=== PATIENT | female | born 1950 | race Hispanic/Latino ===

== ENCOUNTER 2021-07-26 19:12 | Emergency (ER) | payer MEDICARE ==
--- NOTE | 2021-07-26 20:52 | Emergency Department Report ---
ED Psych HPI - General Chief Complaint: Medical Clearance Stated Complaint: MEDICAL CLEARANCE Time Seen by Provider: 07/26/21 20:47 - History of Present Illness Initial Comments: Patient is 71 years old female with history of hypertension and osteoarthritis. Unknown past psychiatric history. Patient brought to the emergency room by EMS from a [facility] to be admitted to our geriatric psychiatric units. EMS stated that patient is having suicidal ideation. When I asked the patient states she stated that she was suicidal in November. Patient is alert but she is not answering question appropriately. Patient is very delusional. When asked about this auditory and visual hallucination patient denied. Patient denied any fever or chills. No chest pain or shortness of breath. No focal weakness numbness or tingling sensation. MD Complaint: suicidal ideation, altered mental status -: unknown Associated Psychiatric Symptoms: racing thoughts - Related Data Home Medications Medication Instructions Recorded Confirmed Last Taken Diclofenac 1% [Diclofenac 1% 100 gm TP Q6H 07/27/21 07/28/21 Unknown topical gel] Rivaroxaban [Xarelto] 20 mg PO DAILY 07/27/21 07/28/21 Unknown Valproic Acid [Depakene] 250 mg PO BID 07/27/21 07/28/21 Unknown amLODIPine [Norvasc] 10 mg PO DAILY 07/27/21 07/28/21 Unknown Previous Rx's Medication Instructions Recorded Last Taken Type cephALEXin [Keflex] 500 mg PO Q8HR #20 cap 07/27/21 Unknown Rx Allergies Allergy/AdvReac Type Severity Reaction Status Date / Time No Known Allergies Allergy Verified 07/27/21 04:01 ED Review of Systems ROS: Stated complaint: MEDICAL CLEARANCE Other details as noted in HPI Comment: All other systems reviewed and negative Constitutional: denies: chills, fever Respiratory: denies: cough, shortness of breath, SOB with exertion, SOB at rest Cardiovascular: denies: chest pain, palpitations Gastrointestinal: denies: abdominal pain, nausea, vomiting Neurological: denies: headache, weakness, numbness ED Past Medical Hx - Medications Home Medications: Home Medications Medication Instructions Recorded Confirmed Last Taken Type Diclofenac 1% [Diclofenac 1% 100 gm TP Q6H 07/27/21 07/28/21 Unknown History topical gel] Rivaroxaban [Xarelto] 20 mg PO DAILY 07/27/21 07/28/21 Unknown History Valproic Acid [Depakene] 250 mg PO BID 07/27/21 07/28/21 Unknown History amLODIPine [Norvasc] 10 mg PO DAILY 07/27/21 07/28/21 Unknown History cephALEXin [Keflex] 500 mg PO Q8HR #20 cap 07/27/21 07/28/21 Unknown Rx ED Physical Exam - General General appearance: alert, in no apparent distress - Head Head exam: Present: atraumatic, normocephalic - Eye Eye exam: Present: normal appearance - ENT ENT exam: Present: normal exam, normal orophraynx, mucous membranes moist - Neck Neck exam: Present: normal inspection, full ROM. Absent: tenderness, men ingismus - Respiratory Respiratory exam: Present: normal lung sounds bilaterally - Cardiovascular Cardiovascular Exam: Present: regular rate, normal rhythm, normal heart sounds - GI/Abdominal GI/Abdominal exam: Present: soft, normal bowel sounds. Absent: distended, tenderness, guarding, rebound, rigid, organomegaly, mass, bruit, pulsatile mass, hernia - Extremities Exam Extremities exam: Present: normal inspection, full ROM, normal capillary refill. Absent: tenderness, pedal edema, joint swelling, calf tenderness - Back Exam Back exam: Present: normal inspection, full ROM. Absent: CVA tenderness (R), CVA tenderness (L) - Neurological Exam Neurological exam: Present: alert, altered, CN II-XII intact. Absent: motor sensory deficit - Psychiatric Psychiatric exam: Present: anxious, suicidal ideation. Absent: homicidal ideation - Skin Skin exam: Present: warm, intact, normal color ED Course Vital Signs 07/26/21 07/27/21 07/27/21 23:34 04:50 08:40 Temperature 97.9 F 97.6 F Pulse Rate 74 90 Respiratory 18 16 20 Rate Blood Pressure 122/71 111/79 [Right] O2 Sat by Pulse 98 98 95 Oximetry 07/27/21 21:00 Temperature 97.6 F Pulse Rate 84 Respiratory 18 Rate Blood Pressure 124/72 [Right] O2 Sat by Pulse 95 Oximetry ED Medical Decision Making - Lab Data Result diagrams: 07/26/21 20:29 07/26/21 20:29 - Medical Decision Making Patient is 71 years old female with history of hypertension and osteoarthritis. Unknown past psychiatric history. Patient brought to the emergency room by EMS from a [place] [facility] to be admitted to our geriatric psychiatric units. EMS stated that patient is having suicidal ideation. When I asked the patient states she stated that she was suicidal in November. Patient is alert but she is not answering question appropriately. Patient is very delusional. When asked about this auditory and visual hallucination patient denied. Patient denied any fever or chills. No chest pain or shortness of breath. No focal weakness numbness or tingling sensation. Labs reviewed and is unremarkable except for UTI. Patient given ciprofloxacin 5 00 mg. Patient is medically cleared to be evaluated by psychiatric team and to be admitted to the geriatric psych. Critical care attestation.: If time is entered above; I have spent that time in minutes in the direct care of this critically ill patient, excluding procedure time. ED Disposition Clinical Impression: Acute psychosis, Suicidal ideation, Cystitis Disposition: HOME / SELF CARE / HOMELESS Is pt being admited?: No Condition: Stable Instructions: Persistent Depressive Disorder, Adult, Helping Someone Who Is Aura cidal Additional Instructions: Drink plenty of water. Take all of the antibiotics. Return for problems. Go directly to the [facility] psych unit for admission. Prescriptions: cephALEXin [Keflex] 500 mg PO Q8HR #20 cap Referrals: ADELA MCCAIN MD [Primary Care Provider] - 3-5 Days
[2021-07-26 21:17] LABS: Basophils % (Auto) 0.6 % (0.0-1.8); Eosinophils % (Auto) 0.2 % (0.0-4.3); Hematocrit 37.6 % (30.3-42.9); Hemoglobin 12.5 gm/dl (10.1-14.3); Lymphocytes # (Auto) 1.1 K/mm3 (1.2-5.4); Lymphocytes % (Auto) 16.8 % (13.4-35.0); Mean Corpuscular HGB Conc 33 % (30-34); Mean Corpuscular Volume 86 fl (79-97); Monocytes # (Auto) 0.9 K/mm3 (0.0-0.8); Monocytes % (Auto) 14.3 % (0.0-7.3); Platelet Count 200 K/mm3 (140-440); Red Blood Count 4.36 M/mm3 (3.65-5.03); Red Cell Distribution Width 18.3 % (13.2-15.2)
[2021-07-26 21:28] LABS: BUN/Creatinine Ratio 26; Blood Urea Nitrogen 21 mg/dL (7-17); Calcium 10.1 mg/dL (8.4-10.2); Hemolysis Index 19
[2021-07-27 00:31] LABS: Amphetamine Screen,Urine PRESUMPTIVE NEGATIVE; Benzodiazepines Screen,Urine PRESUMPTIVE NEGATIVE; Cannabinoid Screen,Urine PRESUMPTIVE NEGATIVE; Cocaine Screen,Urine PRESUMPTIVE NEGATIVE; Methadone Screen,Urine PRESUMPTIVE NEGATIVE; Opiate Screen,Urine PRESUMPTIVE NEGATIVE
[2021-07-27 00:33] LABS: Bilirubin,Urine NEG (Negative); Blood,Urine SM (Negative); Color,Urine Yellow (Yellow)
[2021-07-27 00:37] LABS: WBC,Urine > 182.0 /HPF (0.0-6.0)
[2021-07-27] MEDS ORDERED: levoFLOXacin 500 MG TAB PO ONE (00:38)
[2021-07-27] MEDS ORDERED: LORazepam 2 MG/ML VIAL IM ONE (00:39)
[2021-07-27] MEDS ORDERED: levoFLOXacin 500 MG TAB PO NR (04:00)
--- NOTE | 2021-07-27 09:19 | Consultation ---
History of Present Illness - Reason for Consult Consult date: 07/27/21 Reason for consult: confusion - History of Present Psychiatric Illness Per ER Note: Patient is 71 years old female with history of hypertension and osteoarthritis. Unknown past psychiatric history. Patient brought to the emergency room by EMS from a [facility] to be admitted to our geriatric psychiatric units. EMS stated that patient is having suicidal ideation. When I asked the patient states she stated that she was suicidal in November. Patient is alert but she is not answering question appropriately. Patient is very delusional. When asked about this auditory and visual hallucination patient denied. Patient denied any fever or chills. No chest pain or shortness of breath. No focal weakness numbness or tingling sensation. Tootie Tinajero is a 71y/o female patient who I seen today. During my evaluation of the patient she is confused and irritable. She is delusional and paranoid. Her speech is nonsensical at times. She is a poor historian. She says she doesn't know why she's here or where she is. She says "this is something my brother has started." She is talking loudly. She then tells me that "her knee is here." She then says "my knee is hurting." She says "this sounds like it's turning into a bad situation." The patient then says "I know my brother is behind this." She denies SI/HI. She says "I wouldn't do that." She also denies hallucinations. The patient says "I want out of here now." She denies any illicit drug use, alcohol or nicotine. The patient says she lives alone and is headed to visit her niece. But it is documented that the patient came from [facility]. PAST PSYCHIATRIC HISTORY Diagnoses: Denies Suicide attempts or Self-harm behavior: Denies Prior psychiatric hospitalizations: Denies Substance Abuse history: Denies Previous psychiatric medications tried: Denies Outpatient treatment: Denies PAST MEDICAL HISTORY: Family Psychiatric History: Not available SOCIAL HISTORY Marital Status: Living Arrangements: lives a lone Employment Status: Disabled Access to guns/weapons: Denies Education: History of Abuse: Denies Legal History: Denies REVIEW OF SYSTEMS Constitutional: Negative for weight loss ENT: Negative for stridor Respiratory: Negative for cough or hemoptysis All other systems reviewed and are negative MENTAL STATUS EXAMINATION General Appearance and Behavior: Age appropriate, good hygiene, wearing appropriate clothes, good eye contact, cooperative polite with questioning. Cooperation: Participating, guarded Psychomotor Behavior: normal Mood: irritable Affect and affective range: congruent with mood Thought Process: Illogical, circumstantial Thought Content: delusional Speech: Normal volume, Regular rate and rhythm, loud at times Suicidal Ideation: Denies Homicidal Ideation: Denies HI Hallucinations: Denies Delusions: Yes Impulse Control: impaired Insight and Judgment: Poor insight and judgment Memory: Poor Attention: Divided Orientation: confused Assessment and Plan (1) Mood Disorder, Unspecified Current Visit: Yes Status: Acute RECOMMENDATIONS 1013 Risperidon 0.25mg po BID Remeron 7.5mg po qhs Risks, benefits and alternatives of medications discussed with the patient, questions answered and consent obtained from patient. PSYCHOTHERAPY: Supportive psychotherapy provided MEDICAL: Per primary team DELIRIUM PRECAUTIONS: Please re-orient patient frequently, keep lights on during the day, and minimize benzodiazepines and opiates as these medications could worsen patient's confusion. 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 Please contact with any questions and/or concerns. Medications and Allergies Allergies Allergy/AdvReac Type Severity Reaction Status Date / Time No Known Allergies Allergy Verified 07/27/21 04:01 Home Medications Medication Instructions Recorded Confirmed Last Taken Type Diclofenac 1% [Diclofenac 1% 100 gm TP Q6H 07/27/21 07/27/21 Unknown History topical gel] Rivaroxaban [Xarelto] 20 mg PO DAILY 07/27/21 07/27/21 Unknown History Valproic Acid [Depakene] 250 mg PO BID 07/27/21 07/27/21 Unknown History amLODIPine [Norvasc] 10 mg PO DAILY 07/27/21 07/27/21 Unknown History Mental Status Exam - Vital signs Last Vital Signs Temp 97.6 F 07/27/21 08:40 Pulse 90 07/27/21 08:40 Resp 20 07/27/21 08:40 BP 111/79 07/27/21 08:40 Pulse Ox 95 07/27/21 08:40 Results Result Diagrams: 07/26/21 20:29 07/26/21 20:29 Abnormal lab results 07/26/21 07/26/21 07/26/21 Range/Units 20:29 20:29 20:29 RDW 18.3 H (13.2-15.2) % Davis % (Auto) 14.3 H (0.0-7.3) % Lymph # (Auto) 1.1 L (1.2-5.4) K/mm3 Davis # (Auto) 0.9 H (0.0-0.8) K/mm3 Sodium 135 L (137-145) mmol/L BUN 21 H (7-17) mg/dL Glucose 103 H (65-100) mg/dL Urine WBC (Auto) (0.0-6.0) /HPF Salicylates < 0.3 L (2.8-20.0) mg/dL Acetaminophen (10.0-30.0) ug/mL 07/26/21 07/27/21 Range/Units 20:29 Unknown RDW (13.2-15.2) % Davis % (Auto) (0.0-7.3) % Lymph # (Auto) (1.2-5.4) K/mm3 Davis # (Auto) (0.0-0.8) K/mm3 Sodium (137-145) mmol/L BUN (7-17) mg/dL Glucose (65-100) mg/dL Urine WBC (Auto) > 182.0 H (0.0-6.0) /HPF Salicylates (2.8-20.0) mg/dL Acetaminophen 5.0 L (10.0-30.0) ug/mL All other labs normal.
[2021-07-27] MEDS ORDERED: risperiDONE 0.25 MG TAB PO SCH (10:00)
[2021-07-27] MEDS ORDERED: MIRTAZAPINE 15 MG TAB PO NR (10:00)
--- NOTE | 2021-07-27 11:08 | Emergency Department Report ---
Blank Doc - Documentation Documentation: Labs were reviewed. Patient was given a dose of a quinolone for a urinary tract infection. I have ordered cephalexin on an ongoing basis to treat her UTI. She has been seen and evaluated by psychiatric services. They are attempting general psych placement.
[2021-07-27] MEDS: cephALEXin 500 MG CAP PO SCH ×2 (11:47→18:04)
--- NOTE | 2021-07-27 17:19 | Emergency Department Report ---
Blank Doc - Documentation Documentation: Patient has been accepted for a general psych admission. She will be discharged from the emergency department and admitted to [facility] psych. Discharge paperwork will be completed.
[2021-07-28 06:21] VITALS: BP 124/72
== END 2021-07-27 18:14 | disposition home or self-care (01) ==
LOC: ED 19:12
DX: F23 Brief psychotic disorder (principal); N30.90 Cystitis, unspecified without hematuria; R45.851 Suicidal ideations; Z20.822 Contact with and (suspected) exposure to COVID-19
CPT/HCPCS: 36415; 80048; 80307; 80320; 81001; 85025; 99284; G0480; U0003

== ENCOUNTER 2021-07-27 16:42 | Inpatient (IN) | payer MEDICARE ==
--- NOTE | 2021-07-27 20:51 | Consultation ---
History of Present Illness - Reason for Consult Consult date: 07/27/21 Medical Management Requesting physician: YOLANDA TAVAREZ - History of Present Illness 71 YO Female with Vascular Dementia with Behavioral Disturbance, Cerebral Atherosclerosis, HTN, Pulmonary Embolism on therapeutic anticoagulation with Eliquis, BrCa admitted to [facility] unit for psychiatric stabilization. Consult placed by Dr. Tavarez for medical management. Patient seen and evaluated in the recreation room. Patient denies fever, chills, chest pain, palpitation, productive cough, recent ill contacts, or known exposure to COVID- 19. No reported nursing events. Patient cooperative. Past History Past Medical History: hypertension, pulmonary embolism, other (See HPI) Past Surgical History: No surgical history, Other (Reviewed) Social history: single. denies: smoking, alcohol abuse, prescription drug abuse Family history: hypertension Medications and Allergies Allergies Allergy/AdvReac Type Severity Reaction Status Date / Time No Known Allergies Allergy Verified 07/27/21 04:01 Home Medications Medication Instructions Recorded Confirmed Last Taken Type Diclofenac 1% [Diclofenac 1% 100 gm TP Q6H 07/27/21 07/28/21 Unknown History topical gel] Rivaroxaban [Xarelto] 20 mg PO DAILY 07/27/21 07/28/21 Unknown History Valproic Acid [Depakene] 250 mg PO BID 07/27/21 07/28/21 Unknown History amLODIPine [Norvasc] 10 mg PO DAILY 07/27/21 07/28/21 Unknown History cephALEXin [Keflex] 500 mg PO Q8HR #20 cap 07/27/21 07/28/21 Unknown Rx Review of Systems Constitutional: no weight loss, no weight gain, no fever, no chills Ears, nose, mouth and throat: no ear pain, no tinnitis, no nose pain, no nasal congestion Breasts: no change in shape, no swelling, no mass Cardiovascular: no chest pain, no orthopnea, no palpitations, no syncope, no paroxysmal nocturnal dyspnea, no phlebitis, no high blood pressure Respiratory: no cough, no hemoptysis, no shortness of breath Gastrointestinal: no abdominal pain, no nausea, no vomiting, no diarrhea, no change in bowel habits Genitourinary Female: no pelvic pain, no flank pain, no dysuria, no urinary frequency, no urgency Rectal: no pain, no incontinence, no bleeding Musculoskeletal: no neck pain, no shooting arm pain, no arm numbness/tingling, no low back pain, no shooting leg pain, no leg numbness/tingling Integumentary: no rash, no redness, no sores, no boils Neurological: no head injury, no paralysis, no tingling, no seizures, no syncope, no tremors Psychiatric: no disorientation, no hallucinations Endocrine: no cold intolerance, no polyuria, no nocturia, no excessive sweating Hematologic/Lymphatic: no easy bruising, no easy bleeding, no lymphadenopathy Allergic/Immunologic: no urticaria, no allergic rhinitis, no anaphylaxis Exam - Constitutional General appearance: Present: obese - EENT Eyes: Present: PERRL ENT: hearing intact, clear oral mucosa - Neck Neck: Present: supple, normal ROM - Respiratory Respiratory effort: normal Respiratory: bilateral: CTA - Cardiovascular Heart Sounds: Present: S1 & S2. Absent: rub, click - Extremities Extremities: pulses symmetrical, No edema Peripheral Pulses: within normal limits - Abdominal General gastrointestinal: Present: soft, non-tender, non-distended, normal bowel sounds Female genitourinary: Present: normal - Integumentary Integumentary: Present: clear, warm, dry - Musculoskeletal Musculoskeletal: gait normal, strength equal bilaterally - Psychiatric Psychiatric: appropriate mood/affect, intact judgment & insight - Neurologic Neurologic: CNII-XII intact, moves all extremities Results - Labs CBC & Chem 7: 07/28/21 05:46 07/28/21 05:46 Assessment and Plan - Patient Problems (1) Vascular dementia with behavioral disturbance Current Visit: Yes Status: Acute Plan to address problem: Verbal prompting, verbal redirection, benzodiazepine therapy as clinically indicated, supportive care. (2) Cerebral atherosclerosis Current Visit: Yes Status: Acute Plan to address problem: Risk factor reduction, supportive care, antiplatelet therapy as clinically indicated (3) Pulmonary embolism Current Visit: Yes Status: Acute Plan to address problem: Continue therapeutic anticoagulation (4) Hypertension Current Visit: Yes Status: Acute Qualifiers: Hypertension type: primary hypertension Qualified Code(s): I10 - Essential (primary) hypertension Plan to address problem: Monitor blood pressure every shift, continue medical management
[2021-07-27] MEDS: VALPROIC ACID 250 MG CAP PO SCH (23:11)
[2021-07-27] MEDS: cephALEXin 500 MG CAP PO SCH (23:12)
[2021-07-27] MEDS: DICLOFENAC SODIUM 1% TOPICAL GEL 100 GM TP SCH (23:12)
[2021-07-28] MEDS: DICLOFENAC SODIUM 1% TOPICAL GEL 100 GM TP SCH ×4 (03:32→21:37)
[2021-07-28] MEDS: cephALEXin 500 MG CAP PO SCH ×3 (05:59→21:38)
[2021-07-28 06:27] LABS: Hematocrit 34.1 % (30.3-42.9); Hemoglobin 11.1 gm/dl (10.1-14.3); Mean Corpuscular HGB Conc 33 % (30-34); Mean Corpuscular Volume 85 fl (79-97); Platelet Count 212 K/mm3 (140-440); Red Blood Count 4.02 M/mm3 (3.65-5.03); Red Cell Distribution Width 18.3 % (13.2-15.2)
[2021-07-28 08:08] LABS: Alanine Aminotransferase 6 units/L (7-56); BUN/Creatinine Ratio 24; Blood Urea Nitrogen 19 mg/dL (7-17); Calcium 10.6 mg/dL (8.4-10.2); Chol/HDL Ratio 3.17 %; HDL Cholesterol 41 mg/dL (40-59); Hemolysis Index 4; LDL Cholesterol,Direct 70 mg/dL (50-130)
[2021-07-28 08:31] LABS: Band Neutrophils # (Manual) 0.1 K/mm3; Total Cells Counted 100
[2021-07-28 08:32] LABS: Platelet Estimate Consistent w Auto; RBC Morphology Normal
[2021-07-28] MEDS: VALPROIC ACID 250 MG CAP PO SCH ×2 (09:33→21:37)
[2021-07-28] MEDS: amLODIPine 10 MG TAB PO SCH (09:33)
[2021-07-28] MEDS: RIVAROXABAN 20 MG TAB PO SCH (09:33)
[2021-07-28] MEDS ORDERED: NON-FORMULARY EACH (Rivaroxaban 20 MG Tablet) PO SCH (10:00)
--- NOTE | 2021-07-28 10:35 | History and Physical Report ---
GP History & Physical - History of Present Illness Date of admission: 07/27/21 Date of Examination: 07/28/21 Reason for Admission: Danger to self, Failure of Outpatient Treatment, Severe anxiety/depression History of Present Illness: Per ER Note: Per ER Note: Patient is 71 years old female with history of hypertension and osteoarthritis. Unknown past psychiatric history. Patient brought to the emergency room by EMS from a [facility] to be admitted to our geriatric psychiatric units. EMS stated that patient is having suicidal ideation. When I asked the patient states she stated that she was suicidal in November. Patient is alert but she is not answering question appropriately. Patient is very delusional. When asked about this auditory and visual hallucination patient denied. Patient denied any fever or chills. No c hest pain or shortness of breath. No focal weakness numbness or tingling sensation. Jaymie Monroy is a 71y/o female patient I rounded on yesterday. She is sitting quietly. She appears to be a bit delusional. She has poor insight. She says "I'm great, and I'm ready to get out of here." The patient says "I know who is behind this. It is my brother and oldest sister." She then starts talking abo ut them "refusing to acknowledge the real reason she's here." Apparently the patient left a note that stated she had given up on life. The patient failed to mention this to me yesterday. She denies hallucinations of any kind. PAST PSYCHIATRIC HISTORY Diagnoses: Denies Suicide attempts or Self-harm behavior: Denies Prior psychiatric hospitalizations: Denies Substance Abuse history: Denies Previous psychiatric medications tried: Denies Outpatient treatment: Denies PAST MEDICAL HISTORY: Family Psychiatric History: Not available SOCIAL HISTORY Marital Status: Living Arrangements: lives a lone Employment Status: Disabled Access to guns/weapons: Denies Education: History of Abuse: Denies Legal History: Denies REVIEW OF SYSTEMS Constitutional: Negative for weight loss ENT: Negative for stridor Respiratory: Negative for cough or hemoptysis All other systems reviewed and are negative MENTAL STATUS EXAMINATION General Appearance and Behavior: Age appropriate, good hygiene, wearing appropriate clothes, good eye contact, cooperative polite with questioning. Cooperation: Participating, guarded Psychomotor Behavior: normal Mood: irritable Affect and affective range: congruent with mood Thought Process: Illogical, circumstantial Thought Content: delusional Speech: Normal volume, Regular rate and rhythm, loud at times Suicidal Ideation: Denies Homicidal Ideation: Denies [place] Hallucinations: Denies Delusions: Yes Impulse Control: impaired Insight and Judgment: Poor insight and judgment Memory: Poor Attention: Divided Orientation: confused Assessment and Plan (1) Mood Disorder, Unspecified Current Visit: Yes Status: Acute RECOMMENDATIONS Treatment Plan Patient admitted for inpatient psychiatric evaluation, medication adjustment and close monitoring The patient's behavior, mood, sleep and appetite will be closely monitored. Patient enrolled in individual and group therapeutic sessions and encouraged to attend. Patient provided with a safe and structured environment. Patient's physical health needs will be addressed by the Hospitalist. Hospitalist Consulted Labs including CBC, CMP, Lipid profile and Hemoglobin A1C levels ordered for baseline reference Social Assessment will be completed and the Wafer Fabrication Technician will work with patient and family to ensure a suitable and safe disposition Medication adjustment will be made as clinically indicated Risperidone 0.25mg po BID Remeron 7.5mg po qhs Usual Wellness Mu-Ism/Preservation: - Start Trazodone 50 mg po QHS & 50 mg po QHS PRN between 10 PM & 2 AM for insomnia - Start Melatonin 5 mg po QHS to promote circadian rhythm The patient agreed on the treatment plan, understood the risk, benefit, alternative treatment, potential consequence of no treatment, and gave informed consent. Estimated days: 6 Post hospital care: primary care provider, psychiatric provider Case staffed with Dr. Barnett Legal Status: Voluntary Reaction to Hospitalization: Accepting Medications and Allergies Allergies Allergy/AdvReac Type Severity Reaction Status Date / Time No Known Allergies Allergy Verified 07/27/21 04:01 Home Medications Medication Instructions Recorded Confirmed Last Taken Type Diclofenac 1% [Diclofenac 1% 100 gm TP Q6H 07/27/21 07/28/21 Unknown History topical gel] Rivaroxaban [Xarelto] 20 mg PO DAILY 07/27/21 07/28/21 Unknown History Valproic Acid [Depakene] 250 mg PO BID 07/27/21 07/28/21 Unknown History amLODIPine [Norvasc] 10 mg PO DAILY 07/27/21 07/28/21 Unknown History cephALEXin [Keflex] 500 mg PO Q8HR #20 cap 07/27/21 07/28/21 Unknown Rx Active Meds: Active Medications Amlodipine Besylate (Amlodipine 10 Mg Tab) 10 mg PO DAILY [facility] Last Admin: 07/28/21 09:33 Dose: 10 mg Documented by: Cephalexin (Cephalexin 500 Mg Cap) 500 mg PO Q8HR [facility]; Protocol Stop: 07/30/21 23:59 Last Admin: 07/28/21 05:59 Dose: 500 mg Documented by: Diclofenac Sodium (Diclofenac Sodium 1% Topical Gel 100 Gm) 20 applic TP Q6H [facility] Last Admin: 07/28/21 09:33 Dose: 20 applic Documented by: Rivaroxaban (Rivaroxaban 20 Mg Tab) 20 mg PO QDAY [facility] Last Admin: 07/28/21 09:33 Dose: 20 mg Documented by: Valproic Acid (Valproic Acid 250 Mg Cap) 250 mg PO BID [facility] Last Admin: 07/28/21 09:33 Dose: 250 mg Documented by: Results - Results Labs/Vitals: Laboratory Last Values WBC 3.9 K/mm3 (4.5-11.0) L 07/28/21 05:46 RBC 4.02 M/mm3 (3.65-5.03) 07/28/21 05:46 Hgb 11.1 gm/dl (10.1-14.3) 07/28/21 05:46 Hct 34.1 % (30.3-42.9) 07/28/21 05:46 MCV 85 fl (79-97) 07/28/21 05:46 MCH 28 pg (28-32) 07/28/21 05:46 MCHC 33 % (30-34) 07/28/21 05:46 RDW 18.3 % (13.2-15.2) H 07/28/21 05:46 Plt Count 212 K/mm3 (140-440) 07/28/21 05:46 [place] % (Auto) Meat Counter Worker 07/28/21 05:46 Add Manual Diff Complete 07/28/21 05:46 Total Counted 100 07/28/21 05:46 Seg Neuts % (Manual) 62.0 % (40.0-70.0) 07/28/21 05:46 Band Neutrophils % 3.0 % 07/28/21 05:46 Lymphocytes % (Manual) 22.0 % (13.4-35.0) 07/28/21 05:46 Monocytes % (Manual) 13.0 % (0.0-7.3) H 07/28/21 05:46 Nucleated RBC % Not Reportable 07/28/21 05:46 Seg Neutrophils # Man 2.4 K/mm3 (1.8-7.7) 07/28/21 05:46 Band Neutrophils # 0.1 K/mm3 07/28/21 05:46 Lymphocytes # (Manual) 0.9 K/mm3 (1.2-5.4) L 07/28/21 05:46 Abs React Lymphs (Man) 0.0 K/mm3 07/28/21 05:46 Monocytes # (Manual) 0.5 K/mm3 (0.0-0.8) 07/28/21 05:46 Eosinophils # (Manual) 0.0 K/mm3 (0.0-0.4) 07/28/21 05:46 Basophils # (Manual) 0.0 K/mm3 (0.0-0.1) 07/28/21 05:46 Metamyelocytes # 0.0 K/mm3 07/28/21 05:46 Myelocytes # 0.0 K/mm3 07/28/21 05:46 Promyelocytes # 0.0 K/mm3 07/28/21 05:46 Blast Cells # 0.0 K/mm3 07/28/21 05:46 WBC Morphology Not Reportable 07/28/21 05:46 Hypersegmented Neuts Not Reportable 07/28/21 05:46 Hyposegmented Neuts Not Reportable 07/28/21 05:46 Hypogranular Neuts Not Reportable 07/28/21 05:46 Smudge Cells Not Reportable 07/28/21 05:46 Toxic Granulation Not Reportable 07/28/21 05:46 Toxic Vacuolation Not Reportable 07/28/21 05:46 Dohle Bodies Not Reportable 07/28/21 05:46 Pelger-Huet Anomaly Not Reportable 07/28/21 05:46 Taylor Rods Not Reportable 07/28/21 05:46 Platelet Estimate Consistent w auto 07/28/21 05:46 Clumped Platelets Not Reportable 07/28/21 05:46 Plt Clumps, EDTA Not Reportable 07/28/21 05:46 Large Platelets Not Reportable 07/28/21 05:46 Giant Platelets Not Reportable 07/28/21 05:46 Platelet Satelliting Not Reportable 07/28/21 05:46 Plt Morphology Comment Not Reportable 07/28/21 05:46 RBC Morphology Normal 07/28/21 05:46 Dimorphic RBCs Not Reportable 07/28/21 05:46 Polychromasia Not Reportable 07/28/21 05:46 Hypochromasia Not Reportable 07/28/21 05:46 Poikilocytosis Not Reportable 07/28/21 05:46 Anisocytosis Not Reportable 07/28/21 05:46 Microcytosis Not Reportable 07/28/21 05:46 Macrocytosis Not Reportable 07/28/21 05:46 Spherocytes Not Reportable 07/28/21 05:46 Pappenheimer Bodies Not Reportable 07/28/21 05:46 Sickle Cells Not Reportable 07/28/21 05:46 Target Cells Not Reportable 07/28/21 05:46 Tear Drop Cells Not Reportable 07/28/21 05:46 Ovalocytes Not Reportable 07/28/21 05:46 Helmet Cells Not Reportable 07/28/21 05:46 [place] Bodies Not Reportable 07/28/21 05:46 [place] Rings Not Reportable 07/28/21 05:46 [place] Cells Not Reportable 07/28/21 05:46 Bite Cells Not Reportable 07/28/21 05:46 Crenated Cell Not Reportable 07/28/21 05:46 Elliptocytes Not Reportable 07/28/21 05:46 Acanthocytes (Spur) Not Reportable 07/28/21 05:46 Rouleaux Not Reportable 07/28/21 05:46 Hemoglobin C Crystals Not Reportable 07/28/21 05:46 Schistocytes Not Reportable 07/28/21 05:46 Malaria parasites Not Reportable 07/28/21 05:46 Curtis Bodies Not Reportable 07/28/21 05:46 Hem Pathologist Commnt No 07/28/21 05:46 Sodium 144 mmol/L (137-145) D 07/28/21 05:46 Potassium 3.8 mmol/L (3.6-5.0) 07/28/21 05:46 Chloride 109.2 mmol/L (98-107) H 07/28/21 05:46 Carbon Dioxide 21 mmol/L (22-30) L 07/28/21 05:46 Anion Gap 18 mmol/L 07/28/21 05:46 BUN 19 mg/dL (7-17) H 07/28/21 05:46 Creatinine 0.8 mg/dL (0.6-1.2) 07/28/21 05:46 Estimated GFR > 60 ml/min 07/28/21 05:46 BUN/Creatinine Ratio 24 % 07/28/21 05:46 Glucose 85 mg/dL (65-100) 07/28/21 05:46 POC Glucose 96 mg/dL (70-105) 07/27/21 22:15 Hemoglobin A1c 5.6 % (4-6) 07/28/21 05:46 Calcium 10.6 mg/dL (8.4-10.2) H 07/28/21 05:46 Total Bilirubin 0.50 mg/dL (0.1-1.2) 07/28/21 05:46 AST 8 units/L (5-40) 07/28/21 05:46 ALT 6 units/L (7-56) L 07/28/21 05:46 Alkaline Phosphatase 68 units/L (35-129) 07/28/21 05:46 Total Protein 6.4 g/dL (6.3-8.2) 07/28/21 05:46 Albumin 3.0 g/dL (3.9-5) L 07/28/21 05:46 Albumin/Globulin Ratio 0.9 % 07/28/21 05:46 Triglycerides 99 mg/dL (2-149) 07/28/21 05:46 Cholesterol 130 mg/dL (50-199) 07/28/21 05:46 LDL Cholesterol Direct 70 mg/dL (50-130) 07/28/21 05:46 HDL Cholesterol 41 mg/dL (40-59) 07/28/21 05:46 Cholesterol/HDL Ratio 3.17 % 07/28/21 05:46 TSH 1.660 mlU/mL (0.270-4.200) 07/28/21 05:46 Last Vital Signs Temp 97.8 F 07/28/21 07:28 Pulse 63 07/28/21 09:33 Resp 18 07/28/21 07:28 BP 114/70 07/28/21 09:33 Pulse Ox 96 07/28/21 07:28 Physical Examination - Constitutional Vitals: Vital Signs Temp Pulse Resp BP Pulse Ox 97.8 F 63 18 114/70 96 07/28/21 07:28 07/28/21 09:33 07/28/21 07:28 07/28/21 09:33 07/28/21 07:28 Temperature -Last 24 Hours Temperature 97.8 F Temperature 98.0 F Mental Status Exam - Vital signs Last Vital Signs Temp 97.8 F 07/28/21 07:28 Pulse 63 07/28/21 09:33 Resp 18 07/28/21 07:28 BP 114/70 07/28/21 09:33 Pulse Ox 96 07/28/21 07:28 Physician Certification - Certification Statement Physician Certification Statement: This is an acknowledgement statement that JAYMIE KEYS is a 71 year old F who requires inpatient psychiatric admission for treatment which could reasonably be expected to improve the patient's condition for Estimated period of time patient will need to remain in the hospital: [ ] Plan for post-hospital care: [ ]
[2021-07-28] MEDS: risperiDONE 0.25 MG TAB PO SCH ×2 (13:11→21:37)
[2021-07-28] MEDS: MIRTAZAPINE 15 MG TAB PO SCH (21:37)
[2021-07-29] MEDS: DICLOFENAC SODIUM 1% TOPICAL GEL 100 GM TP SCH ×4 (03:19→20:42)
[2021-07-29] MEDS: cephALEXin 500 MG CAP PO SCH ×3 (06:04→21:03)
--- NOTE | 2021-07-29 07:43 | Progress Note ---
Subjective Date of service: 07/29/21 Subjective Comment: 07/29/2021: The patient was seen in the activity room awaiting breakfast. The patient reports doing great. She denies being depressed. She reports sleep and appetite as good. The patient denies any current suicidal/homicidal ideation and denies hallucinations. Per nurse, the patient had a quiet night. No changes made today. REVIEW OF SYSTEMS Constitutional: Negative for weight loss ENT: Negative for stridor Respiratory: Negative for cough or hemoptysis All other systems reviewed and are negative MENTAL STATUS EXAMINATION General Appearance and Behavior: Age appropriate, good hygiene, wearing appropriate clothes, good eye contact, cooperative polite with questioning. Cooperation: Participating, guarded Psychomotor Behavior: normal Mood: "great" Affect and affective range: congruent with mood Thought Process: Goal directed Thought Content: No suicidal Speech: Normal volume, Regular rate and rhythm, loud at times Suicidal Ideation: Denies Homicidal Ideation: Denies Hallucinations: Denies Delusions: None Impulse Control: impaired Insight and Judgment: fair insight and judgment Memory: Poor Attention: Divided Orientation: Alert and oriented. Assessment and Plan (1) Mood Disorder, Unspecified Current Visit: Yes Status: Acute RECOMMENDATIONS Treatment Plan Patient admitted for inpatient psychiatric evaluation, medication adjustment and close monitoring The patient's behavior, mood, sleep and appetite will be closely monitored. Patient enrolled in individual and group therapeutic sessions and encouraged to attend. Patient provided with a safe and structured environment. Patient's physical health needs will be addressed by the Hospitalist. Hospitalist Consulted Labs including CBC, CMP, Lipid profile and Hemoglobin A1C levels ordered for baseline reference Social Assessment will be completed and the Assembler [employer] will work with patient and family to ensure a suitable and safe disposition Medication adjustment will be made as clinically indicated No changes made today Continue Risperidone 0.25mg po BID Continue Remeron 7.5mg po qhs Usual Wellness Faith/Preservation: - Start Trazodone 50 mg po QHS & 50 mg po QHS PRN between 10 PM & 2 AM for insomnia - Start Melatonin 5 mg po QHS to promote circadian rhythm The patient agreed on the treatment plan, understood the risk, benefit, alternative treatment, potential consequence of no treatment, and gave informed consent. Estimated days: 5 Post hospital care: primary care provider, psychiatric provider Case staffed with Dr. Barnett Legal Status: Voluntary Reaction to Hospitalization: Accepting Medications and Allergies Medications and Allergies Allergies Allergy/AdvReac Type Severity Reaction Status Date / Time No Known Allergies Allergy Verified 07/27/21 04:01 Home Medications Medication Instructions Recorded Confirmed Last Taken Type Diclofenac 1% [Diclofenac 1% 100 gm TP Q6H 07/27/21 07/28/21 Unknown History topical gel] Rivaroxaban [Xarelto] 20 mg PO DAILY 07/27/21 07/28/21 Unknown History Valproic Acid [Depakene] 250 mg PO BID 07/27/21 07/28/21 Unknown History amLODIPine [Norvasc] 10 mg PO DAILY 07/27/21 07/28/21 Unknown History cephALEXin [Keflex] 500 mg PO Q8HR #20 cap 07/27/21 07/28/21 Unknown Rx Active Meds: Active Medications Amlodipine Besylate (Amlodipine 10 Mg Tab) 10 mg PO DAILY [facility] Last Admin: 07/28/21 09:33 Dose: 10 mg Documented by: Cephalexin (Cephalexin 500 Mg Cap) 500 mg PO Q8HR [facility]; Protocol Stop: 07/30/21 23:59 Last Admin: 07/29/21 06:04 Dose: 500 mg Documented by: Diclofenac Sodium (Diclofenac Sodium 1% Topical Gel 100 Gm) 20 applic TP Q6H [facility] Last Admin: 07/29/21 03:19 Dose: Not Given Documented by: Mirtazapine (Mirtazapine 15 Mg Tab) 7.5 mg PO QHS [facility] Last Admin: 07/28/21 21:37 Dose: 7.5 mg Documented by: Risperidone (Risperidone 0.25 Mg Tab) 0.25 mg PO BID [facility] Last Admin: 07/28/21 21:37 Dose: 0.25 mg Documented by: Rivaroxaban (Rivaroxaban 20 Mg Tab) 20 mg PO QDAY [facility] Last Admin: 07/28/21 09:33 Dose: 20 mg Documented by: Valproic Acid (Valproic Acid 250 Mg Cap) 250 mg PO BID [facility] Last Admin: 07/28/21 21:37 Dose: 250 mg Documented by: Results - Results Labs/Vitals: Laboratory Last Values WBC 3.9 K/mm3 (4.5-11.0) L 07/28/21 05:46 RBC 4.02 M/mm3 (3.65-5.03) 07/28/21 05:46 Hgb 11.1 gm/dl (10.1-14.3) 07/28/21 05:46 Hct 34.1 % (30.3-42.9) 07/28/21 05:46 MCV 85 fl (79-97) 07/28/21 05:46 MCH 28 pg (28-32) 07/28/21 05:46 MCHC 33 % (30-34) 07/28/21 05:46 RDW 18.3 % (13.2-15.2) H 07/28/21 05:46 Plt Count 212 K/mm3 (140-440) 07/28/21 05:46 [place] % (Auto) Power Generating Plant Operator 07/28/21 05:46 Add Manual Diff Complete 07/28/21 05:46 Total Counted 100 07/28/21 05:46 Seg Neuts % (Manual) 62.0 % (40.0-70.0) 07/28/21 05:46 Band Neutrophils % 3.0 % 07/28/21 05:46 Lymphocytes % (Manual) 22.0 % (13.4-35.0) 07/28/21 05:46 Monocytes % (Manual) 13.0 % (0.0-7.3) H 07/28/21 05:46 Nucleated RBC % Not Reportable 07/28/21 05:46 Seg Neutrophils # Man 2.4 K/mm3 (1.8-7.7) 07/28/21 05:46 Band Neutrophils # 0.1 K/mm3 07/28/21 05:46 Lymphocytes # (Manual) 0.9 K/mm3 (1.2-5.4) L 07/28/21 05:46 Abs React Lymphs (Man) 0.0 K/mm3 07/28/21 05:46 Monocytes # (Manual) 0.5 K/mm3 (0.0-0.8) 07/28/21 05:46 Eosinophils # (Manual) 0.0 K/mm3 (0.0-0.4) 07/28/21 05:46 Basophils # (Manual) 0.0 K/mm3 (0.0-0.1) 07/28/21 05:46 Metamyelocytes # 0.0 K/mm3 07/28/21 05:46 Myelocytes # 0.0 K/mm3 07/28/21 05:46 Promyelocytes # 0.0 K/mm3 07/28/21 05:46 Blast Cells # 0.0 K/mm3 07/28/21 05:46 WBC Morphology Not Reportable 07/28/21 05:46 Hypersegmented Neuts Not Reportable 07/28/21 05:46 Hyposegmented Neuts Not Reportable 07/28/21 05:46 Hypogranular Neuts Not Reportable 07/28/21 05:46 Smudge Cells Not Reportable 07/28/21 05:46 Toxic Granulation Not Reportable 07/28/21 05:46 Toxic Vacuolation Not Reportable 07/28/21 05:46 Dohle Bodies Not Reportable 07/28/21 05:46 Pelger-Huet Anomaly Not Reportable 07/28/21 05:46 [place] Rods Not Reportable 07/28/21 05:46 Platelet Estimate Consistent w auto 07/28/21 05:46 Clumped Platelets Not Reportable 07/28/21 05:46 Plt Clumps, EDTA Not Reportable 07/28/21 05:46 Large Platelets Not Reportable 07/28/21 05:46 Giant Platelets Not Reportable 07/28/21 05:46 Platelet Satelliting Not Reportable 07/28/21 05:46 Plt Morphology Comment Not Reportable 07/28/21 05:46 RBC Morphology Normal 07/28/21 05:46 Dimorphic RBCs Not Reportable 07/28/21 05:46 Polychromasia Not Reportable 07/28/21 05:46 Hypochromasia Not Reportable 07/28/21 05:46 Poikilocytosis Not Reportable 07/28/21 05:46 Anisocytosis Not Reportable 07/28/21 05:46 Microcytosis Not Reportable 07/28/21 05:46 Macrocytosis Not Reportable 07/28/21 05:46 Spherocytes Not Reportable 07/28/21 05:46 Pappenheimer Bodies Not Reportable 07/28/21 05:46 Sickle Cells Not Reportable 07/28/21 05:46 Target Cells Not Reportable 07/28/21 05:46 Tear Drop Cells Not Reportable 07/28/21 05:46 Ovalocytes Not Reportable 07/28/21 05:46 Helmet Cells Not Reportable 07/28/21 05:46 [place] Bodies Not Reportable 07/28/21 05:46 [place] Rings Not Reportable 07/28/21 05:46 [place] Cells Not Reportable 07/28/21 05:46 Bite Cells Not Reportable 07/28/21 05:46 Crenated Cell Not Reportable 07/28/21 05:46 Elliptocytes Not Reportable 07/28/21 05:46 Acanthocytes (Spur) Not Reportable 07/28/21 05:46 Rouleaux Not Reportable 07/28/21 05:46 Hemoglobin C Crystals Not Reportable 07/28/21 05:46 Schistocytes Not Reportable 07/28/21 05:46 Malaria parasites Not Reportable 07/28/21 05:46 Curtis Bodies Not Reportable 07/28/21 05:46 Hem Pathologist Commnt No 07/28/21 05:46 Sodium 144 mmol/L (137-145) D 07/28/21 05:46 Potassium 3.8 mmol/L (3.6-5.0) 07/28/21 05:46 Chloride 109.2 mmol/L (98-107) H 07/28/21 05:46 Carbon Dioxide 21 mmol/L (22-30) L 07/28/21 05:46 Anion Gap 18 mmol/L 07/28/21 05:46 BUN 19 mg/dL (7-17) H 07/28/21 05:46 Creatinine 0.8 mg/dL (0.6-1.2) 07/28/21 05:46 Estimated GFR > 60 ml/min 07/28/21 05:46 BUN/Creatinine Ratio 24 % 07/28/21 05:46 Glucose 85 mg/dL (65-100) 07/28/21 05:46 POC Glucose 96 mg/dL (70-105) 07/27/21 22:15 Hemoglobin A1c 5.6 % (4-6) 07/28/21 05:46 Calcium 10.6 mg/dL (8.4-10.2) H 07/28/21 05:46 Total Bilirubin 0.50 mg/dL (0.1-1.2) 07/28/21 05:46 AST 8 units/L (5-40) 07/28/21 05:46 ALT 6 units/L (7-56) L 07/28/21 05:46 Alkaline Phosphatase 68 units/L (35-129) 07/28/21 05:46 Total Protein 6.4 g/dL (6.3-8.2) 07/28/21 05:46 Albumin 3.0 g/dL (3.9-5) L 07/28/21 05:46 Albumin/Globulin Ratio 0.9 % 07/28/21 05:46 Triglycerides 99 mg/dL (2-149) 07/28/21 05:46 Cholesterol 130 mg/dL (50-199) 07/28/21 05:46 LDL Cholesterol Direct 70 mg/dL (50-130) 07/28/21 05:46 HDL Cholesterol 41 mg/dL (40-59) 07/28/21 05:46 Cholesterol/HDL Ratio 3.17 % 07/28/21 05:46 TSH 1.660 mlU/mL (0.270-4.200) 07/28/21 05:46 Last Vital Signs Temp 98.3 F 07/28/21 17:51 Pulse 67 07/28/21 17:51 Resp 18 07/28/21 17:51 BP 117/68 07/28/21 17:51 Pulse Ox 96 07/28/21 17:51
[2021-07-29] MEDS: amLODIPine 10 MG TAB PO SCH (09:11)
[2021-07-29] MEDS: VALPROIC ACID 250 MG CAP PO SCH ×2 (09:11→21:02)
[2021-07-29] MEDS: risperiDONE 0.25 MG TAB PO SCH ×2 (09:11→21:03)
[2021-07-29] MEDS: RIVAROXABAN 20 MG TAB PO SCH (09:11)
[2021-07-29] MEDS: MIRTAZAPINE 15 MG TAB PO SCH (21:03)
[2021-07-30] MEDS: DICLOFENAC SODIUM 1% TOPICAL GEL 100 GM TP SCH ×4 (03:54→20:01)
[2021-07-30] MEDS: cephALEXin 500 MG CAP PO SCH ×3 (05:26→21:25)
--- NOTE | 2021-07-30 08:46 | Progress Note ---
Subjective Date of service: 07/30/21 Subjective Comment: 07/29/2021: The patient was seen in the activity room awaiting breakfast. The patient reports doing great. She denies being depressed. She reports sleep and appetite as good. The patient denies any current suicidal/homicidal ideation and denies hallucinations. Per nurse, the patient had a quiet night. No changes made today. 07/30/2021: The patient was seen in the activity room, she presents in high spirits. The patient reports mood as "good", states sleep and appetite as good. She denies any current suicidal/homicidal ideation and denies hallucinations. Per nurse, the patient had a quiet night. No changes made todat. REVIEW OF SYSTEMS Constitutional: Negative for weight loss ENT: Negative for stridor Respiratory: Negative for cough or hemoptysis All other systems reviewed and are negative MENTAL STATUS EXAMINATION General Appearance and Behavior: Age appropriate, good hygiene, wearing appropriate clothes, good eye contact, cooperative polite with questioning. Cooperation: Participating, guarded Psychomotor Behavior: normal Mood: "good" Affect and affective range: congruent with mood Thought Process: Goal directed Thought Content: No suicidal Speech: Normal volume, Regular rate and rhythm, loud at times Suicidal Ideation: Denies Homicidal Ideation: Denies Hallucinations: Denies Delusions: None Impulse Control: impaired Insight and Judgment: fair insight and judgment Memory: Poor Attention: Divided Orientation: Alert and oriented. Assessment and Plan (1) Mood Disorder, Unspecified Current Visit: Yes Status: Acute RECOMMENDATIONS Treatment Plan Patient admitted for inpatient psychiatric evaluation, medication adjustment and close monitoring The patient's behavior, mood, sleep and appetite will be closely monitored. Patient enrolled in individual and group therapeutic sessions and encouraged to attend. Patient provided with a safe and structured environment. Patient's physical health needs will be addressed by the Hospitalist. Hospitalist Consulted Labs including CBC, CMP, Lipid profile and Hemoglobin A1C levels ordered for baseline reference Social Assessment will be completed and the Supervisor Soldering will work with patient and family to ensure a suitable and safe disposition Medication adjustment will be made as clinically indicated No changes made today Continue Risperidone 0.25mg po BID Continue Remeron 7.5mg po qhs Usual Wellness Nondenominational/Preservation: - Start Trazodone 50 mg po QHS & 50 mg po QHS PRN between 10 PM & 2 AM for insomnia - Start Melatonin 5 mg po QHS to promote circadian rhythm The patient agreed on the treatment plan, understood the risk, benefit, alternative treatment, potential consequence of no treatment, and gave informed consent. Estimated days: 4 Post hospital care: primary care provider, psychiatric provider Case staffed with Dr. Barnett Legal Status: Voluntary Reaction to Hospitalization: Accepting Medications and Allergies Medications and Allergies Allergies Allergy/AdvReac Type Severity Reaction Status Date / Time No Known Allergies Allergy Verified 07/27/21 04:01 Home Medications Medication Instructions Recorded Confirmed Last Taken Type Diclofenac 1% [Diclofenac 1% 100 gm TP Q6H 07/27/21 07/28/21 Unknown History topical gel] Rivaroxaban [Xarelto] 20 mg PO DAILY 07/27/21 07/28/21 Unknown History Valproic Acid [Depakene] 250 mg PO BID 07/27/21 07/28/21 Unknown History amLODIPine [Norvasc] 10 mg PO DAILY 07/27/21 07/28/21 Unknown History cephALEXin [Keflex] 500 mg PO Q8HR #20 cap 07/27/21 07/28/21 Unknown Rx Active Meds: Active Medications Amlodipine Besylate (Amlodipine 10 Mg Tab) 10 mg PO DAILY [facility] Last Admin: 07/29/21 09:11 Dose: 10 mg Documented by: Cephalexin (Cephalexin 500 Mg Cap) 500 mg PO Q8HR [facility]; Protocol Stop: 07/30/21 23:59 Last Admin: 07/30/21 05:26 Dose: 500 mg Documented by: Diclofenac Sodium (Diclofenac Sodium 1% Topical Gel 100 Gm) 20 applic TP Q6H [facility] Last Admin: 07/30/21 03:54 Dose: Not Given Documented by: Mirtazapine (Mirtazapine 15 Mg Tab) 7.5 mg PO QHS [facility] Last Admin: 07/29/21 21:03 Dose: 7.5 mg Documented by: Risperidone (Risperidone 0.25 Mg Tab) 0.25 mg PO BID [facility] Last Admin: 07/29/21 21:03 Dose: 0.25 mg Documented by: Rivaroxaban (Rivaroxaban 20 Mg Tab) 20 mg PO QDAY [facility] Last Admin: 07/29/21 09:11 Dose: 20 mg Documented by: Valproic Acid (Valproic Acid 250 Mg Cap) 250 mg PO BID [facility] Last Admin: 07/29/21 21:02 Dose: 250 mg Documented by: Results - Results Labs/Vitals: Laboratory Last Values WBC 3.9 K/mm3 (4.5-11.0) L 07/28/21 05:46 RBC 4.02 M/mm3 (3.65-5.03) 07/28/21 05:46 Hgb 11.1 gm/dl (10.1-14.3) 07/28/21 05:46 Hct 34.1 % (30.3-42.9) 07/28/21 05:46 MCV 85 fl (79-97) 07/28/21 05:46 MCH 28 pg (28-32) 07/28/21 05:46 MCHC 33 % (30-34) 07/28/21 05:46 RDW 18.3 % (13.2-15.2) H 07/28/21 05:46 Plt Count 212 K/mm3 (140-440) 07/28/21 05:46 [place] % (Auto) Associate Application Developer 07/28/21 05:46 Add Manual Diff Complete 07/28/21 05:46 Total Counted 100 07/28/21 05:46 Seg Neuts % (Manual) 62.0 % (40.0-70.0) 07/28/21 05:46 Band Neutrophils % 3.0 % 07/28/21 05:46 Lymphocytes % (Manual) 22.0 % (13.4-35.0) 07/28/21 05:46 Monocytes % (Manual) 13.0 % (0.0-7.3) H 07/28/21 05:46 Nucleated RBC % Not Reportable 07/28/21 05:46 Seg Neutrophils # Man 2.4 K/mm3 (1.8-7.7) 07/28/21 05:46 Band Neutrophils # 0.1 K/mm3 07/28/21 05:46 Lymphocytes # (Manual) 0.9 K/mm3 (1.2-5.4) L 07/28/21 05:46 Abs React Lymphs (Man) 0.0 K/mm3 07/28/21 05:46 Monocytes # (Manual) 0.5 K/mm3 (0.0-0.8) 07/28/21 05:46 Eosinophils # (Manual) 0.0 K/mm3 (0.0-0.4) 07/28/21 05:46 Basophils # (Manual) 0.0 K/mm3 (0.0-0.1) 07/28/21 05:46 Metamyelocytes # 0.0 K/mm3 07/28/21 05:46 Myelocytes # 0.0 K/mm3 07/28/21 05:46 Promyelocytes # 0.0 K/mm3 07/28/21 05:46 Blast Cells # 0.0 K/mm3 07/28/21 05:46 WBC Morphology Not Reportable 07/28/21 05:46 Hypersegmented Neuts Not Reportable 07/28/21 05:46 Hyposegmented Neuts Not Reportable 07/28/21 05:46 Hypogranular Neuts Not Reportable 07/28/21 05:46 Smudge Cells Not Reportable 07/28/21 05:46 Toxic Granulation Not Reportable 07/28/21 05:46 Toxic Vacuolation Not Reportable 07/28/21 05:46 Dohle Bodies Not Reportable 07/28/21 05:46 Pelger-Huet Anomaly Not Reportable 07/28/21 05:46 Taylor Rods Not Reportable 07/28/21 05:46 Platelet Estimate Consistent w auto 07/28/21 05:46 Clumped Platelets Not Reportable 07/28/21 05:46 Plt Clumps, EDTA Not Reportable 07/28/21 05:46 Large Platelets Not Reportable 07/28/21 05:46 Giant Platelets Not Reportable 07/28/21 05:46 Platelet Satelliting Not Reportable 07/28/21 05:46 Plt Morphology Comment Not Reportable 07/28/21 05:46 RBC Morphology Normal 07/28/21 05:46 Dimorphic RBCs Not Reportable 07/28/21 05:46 Polychromasia Not Reportable 07/28/21 05:46 Hypochromasia Not Reportable 07/28/21 05:46 Poikilocytosis Not Reportable 07/28/21 05:46 Anisocytosis Not Reportable 07/28/21 05:46 Microcytosis Not Reportable 07/28/21 05:46 Macrocytosis Not Reportable 07/28/21 05:46 Spherocytes Not Reportable 07/28/21 05:46 Pappenheimer Bodies Not Reportable 07/28/21 05:46 Sickle Cells Not Reportable 07/28/21 05:46 Target Cells Not Reportable 07/28/21 05:46 Tear Drop Cells Not Reportable 07/28/21 05:46 Ovalocytes Not Reportable 07/28/21 05:46 Helmet Cells Not Reportable 07/28/21 05:46 [place] Bodies Not Reportable 07/28/21 05:46 [place] Rings Not Reportable 07/28/21 05:46 [place] Cells Not Reportable 07/28/21 05:46 Bite Cells Not Reportable 07/28/21 05:46 Crenated Cell Not Reportable 07/28/21 05:46 Elliptocytes Not Reportable 07/28/21 05:46 Acanthocytes (Spur) Not Reportable 07/28/21 05:46 Rouleaux Not Reportable 07/28/21 05:46 Hemoglobin C Crystals Not Reportable 07/28/21 05:46 Schistocytes Not Reportable 07/28/21 05:46 Malaria parasites Not Reportable 07/28/21 05:46 Curtis Bodies Not Reportable 07/28/21 05:46 Hem Pathologist Commnt No 07/28/21 05:46 Sodium 144 mmol/L (137-145) D 07/28/21 05:46 Potassium 3.8 mmol/L (3.6-5.0) 07/28/21 05:46 Chloride 109.2 mmol/L (98-107) H 07/28/21 05:46 Carbon Dioxide 21 mmol/L (22-30) L 07/28/21 05:46 Anion Gap 18 mmol/L 07/28/21 05:46 BUN 19 mg/dL (7-17) H 07/28/21 05:46 Creatinine 0.8 mg/dL (0.6-1.2) 07/28/21 05:46 Estimated GFR > 60 ml/min 07/28/21 05:46 BUN/Creatinine Ratio 24 % 07/28/21 05:46 Glucose 85 mg/dL (65-100) 07/28/21 05:46 POC Glucose 96 mg/dL (70-105) 07/27/21 22:15 Hemoglobin A1c 5.6 % (4-6) 07/28/21 05:46 Calcium 10.6 mg/dL (8.4-10.2) H 07/28/21 05:46 Total Bilirubin 0.50 mg/dL (0.1-1.2) 07/28/21 05:46 AST 8 units/L (5-40) 07/28/21 05:46 ALT 6 units/L (7-56) L 07/28/21 05:46 Alkaline Phosphatase 68 units/L (35-129) 07/28/21 05:46 Total Protein 6.4 g/dL (6.3-8.2) 07/28/21 05:46 Albumin 3.0 g/dL (3.9-5) L 07/28/21 05:46 Albumin/Globulin Ratio 0.9 % 07/28/21 05:46 Triglycerides 99 mg/dL (2-149) 07/28/21 05:46 Cholesterol 130 mg/dL (50-199) 07/28/21 05:46 LDL Cholesterol Direct 70 mg/dL (50-130) 07/28/21 05:46 HDL Cholesterol 41 mg/dL (40-59) 07/28/21 05:46 Cholesterol/HDL Ratio 3.17 % 07/28/21 05:46 TSH 1.660 mlU/mL (0.270-4.200) 07/28/21 05:46 Last Vital Signs Temp 97.6 F 07/29/21 21:10 Pulse 87 07/29/21 21:10 Resp 18 07/29/21 21:10 BP 112/74 07/29/21 21:10 Pulse Ox 98 07/29/21 21:10
[2021-07-30] MEDS: risperiDONE 0.25 MG TAB PO SCH ×2 (09:14→21:25)
[2021-07-30] MEDS: RIVAROXABAN 20 MG TAB PO SCH (09:14)
[2021-07-30] MEDS: amLODIPine 10 MG TAB PO SCH (09:14)
[2021-07-30] MEDS: VALPROIC ACID 250 MG CAP PO SCH ×2 (09:14→21:24)
[2021-07-30] MEDS: MIRTAZAPINE 15 MG TAB PO SCH (21:25)
[2021-07-31] MEDS: DICLOFENAC SODIUM 1% TOPICAL GEL 100 GM TP SCH ×4 (02:18→21:48)
[2021-07-31] MEDS: VALPROIC ACID 250 MG CAP PO SCH ×2 (09:21→21:47)
[2021-07-31] MEDS: amLODIPine 10 MG TAB PO SCH (09:21)
[2021-07-31] MEDS: RIVAROXABAN 20 MG TAB PO SCH (09:21)
[2021-07-31] MEDS: risperiDONE 0.25 MG TAB PO SCH ×2 (09:21→21:53)
--- NOTE | 2021-07-31 09:34 | Progress Note ---
Subjective Date of service: 07/31/21 Subjective Comment: 07/29/2021: The patient was seen in the activity room awaiting breakfast. The patient reports doing great. She denies being depressed. She reports sleep and appetite as good. The patient denies any current suicidal/homicidal ideation and denies hallucinations. Per nurse, the patient had a quiet night. No changes made today. 07/30/2021: The patient was seen in the activity room, she presents in high spirits. The patient reports mood as "good", states sleep and appetite as good. She denies any current suicidal/homicidal ideation and denies hallucinations. Per nurse, the patient had a quiet night. No changes made today. 07/31/2021: The patient was seen in the activity room socializing with peer, she reports mood as " fabulous." " I am as happy as can be." She reports sleep and appetite as good. She denies any current suicidal/homicidal ideation and denies hallucinations. Per nurse, the patient had a quiet night. No changes made today. REVIEW OF SYSTEMS Constitutional: Negative for weight loss ENT: Negative for stridor Respiratory: Negative for cough or hemoptysis All other systems reviewed and are negative MENTAL STATUS EXAMINATION General Appearance and Behavior: Age appropriate, good hygiene, wearing appropriate clothes, good eye contact, cooperative polite with questioning. Cooperation: Participating, guarded Psychomotor Behavior: normal Mood: "fabulous" Affect and affective range: congruent with mood Thought Process: Goal directed Thought Content: No suicidal Speech: Normal volume, Regular rate and rhythm, loud at times Suicidal Ideation: Denies Homicidal Ideation: Denies Hallucinations: Denies Delusions: None Impulse Control: impaired Insight and Judgment: fair insight and judgment Memory: Poor Attention: Divided Orientation: Alert and oriented. Assessment and Plan (1) Mood Disorder, Unspecified Current Visit: Yes Status: Acute RECOMMENDATIONS Treatment Plan Patient admitted for inpatient psychiatric evaluation, medication adjustment and close monitoring The patient's behavior, mood, sleep and appetite will be closely monitored. Patient enrolled in individual and group therapeutic sessions and encouraged to attend. Patient provided with a safe and structured environment. Patient's physical health needs will be addressed by the Hospitalist. Hospitalist Consulted Labs including CBC, CMP, Lipid profile and Hemoglobin A1C levels ordered for baseline reference Social Assessment will be completed and the Legal Operations Manager will work with patient and family to ensure a suitable and safe disposition Medication adjustment will be made as clinically indicated No changes made today Continue Risperidone 0.25mg po BID Continue Remeron 7.5mg po qhs Usual Wellness Nondenominational/Preservation: - Start Trazodone 50 mg po QHS & 50 mg po QHS PRN between 10 PM & 2 AM for insomnia - Start Melatonin 5 mg po QHS to promote circadian rhythm The patient agreed on the treatment plan, understood the risk, benefit, alternative treatment, potential consequence of no treatment, and gave informed consent. Estimated days: 3 Post hospital care: primary care provider, psychiatric provider Case staffed with Dr. Barnett Legal Status: Voluntary Reaction to Hospitalization: Accepting Medications and Allergies Medications and Allergies Allergies Allergy/AdvReac Type Severity Reaction Status Date / Time No Known Allergies Allergy Verified 07/27/21 04:01 Home Medications Medication Instructions Recorded Confirmed Last Taken Type Diclofenac 1% [Diclofenac 1% 100 gm TP Q6H 07/27/21 07/28/21 Unknown History topical gel] Rivaroxaban [Xarelto] 20 mg PO DAILY 07/27/21 07/28/21 Unknown History Valproic Acid [Depakene] 250 mg PO BID 07/27/21 07/28/21 Unknown History amLODIPine [Norvasc] 10 mg PO DAILY 07/27/21 07/28/21 Unknown History cephALEXin [Keflex] 500 mg PO Q8HR #20 cap 07/27/21 07/28/21 Unknown Rx Active Meds: Active Medications Amlodipine Besylate (Amlodipine 10 Mg Tab) 10 mg PO DAILY [facility] Last Admin: 07/31/21 09:21 Dose: 10 mg Documented by: Diclofenac Sodium (Diclofenac Sodium 1% Topical Gel 100 Gm) 20 applic TP Q6H [facility] Last Admin: 07/31/21 08:35 Dose: 20 applic Documented by: Mirtazapine (Mirtazapine 15 Mg Tab) 7.5 mg PO QHS [facility] Last Admin: 07/30/21 21:25 Dose: 7.5 mg Documented by: Risperidone (Risperidone 0.25 Mg Tab) 0.25 mg PO BID [facility] Last Admin: 07/31/21 09:21 Dose: 0.25 mg Documented by: Rivaroxaban (Rivaroxaban 20 Mg Tab) 20 mg PO QDAY [facility] Last Admin: 07/31/21 09:21 Dose: 20 mg Documented by: Valproic Acid (Valproic Acid 250 Mg Cap) 250 mg PO BID [facility] Last Admin: 07/31/21 09:21 Dose: 250 mg Documented by: Results - Results Labs/Vitals: Laboratory Last Values WBC 3.9 K/mm3 (4.5-11.0) L 07/28/21 05:46 RBC 4.02 M/mm3 (3.65-5.03) 07/28/21 05:46 Hgb 11.1 gm/dl (10.1-14.3) 07/28/21 05:46 Hct 34.1 % (30.3-42.9) 07/28/21 05:46 MCV 85 fl (79-97) 07/28/21 05:46 MCH 28 pg (28-32) 07/28/21 05:46 MCHC 33 % (30-34) 07/28/21 05:46 RDW 18.3 % (13.2-15.2) H 07/28/21 05:46 Plt Count 212 K/mm3 (140-440) 07/28/21 05:46 [place] % (Auto) Flight Communications Officer 07/28/21 05:46 Add Manual Diff Complete 07/28/21 05:46 Total Counted 100 07/28/21 05:46 Seg Neuts % (Manual) 62.0 % (40.0-70.0) 07/28/21 05:46 Band Neutrophils % 3.0 % 07/28/21 05:46 Lymphocytes % (Manual) 22.0 % (13.4-35.0) 07/28/21 05:46 Monocytes % (Manual) 13.0 % (0.0-7.3) H 07/28/21 05:46 Nucleated RBC % Not Reportable 07/28/21 05:46 Seg Neutrophils # Man 2.4 K/mm3 (1.8-7.7) 07/28/21 05:46 Band Neutrophils # 0.1 K/mm3 07/28/21 05:46 Lymphocytes # (Manual) 0.9 K/mm3 (1.2-5.4) L 07/28/21 05:46 Abs React Lymphs (Man) 0.0 K/mm3 07/28/21 05:46 Monocytes # (Manual) 0.5 K/mm3 (0.0-0.8) 07/28/21 05:46 Eosinophils # (Manual) 0.0 K/mm3 (0.0-0.4) 07/28/21 05:46 Basophils # (Manual) 0.0 K/mm3 (0.0-0.1) 07/28/21 05:46 Metamyelocytes # 0.0 K/mm3 07/28/21 05:46 Myelocytes # 0.0 K/mm3 07/28/21 05:46 Promyelocytes # 0.0 K/mm3 07/28/21 05:46 Blast Cells # 0.0 K/mm3 07/28/21 05:46 WBC Morphology Not Reportable 07/28/21 05:46 Hypersegmented Neuts Not Reportable 07/28/21 05:46 Hyposegmented Neuts Not Reportable 07/28/21 05:46 Hypogranular Neuts Not Reportable 07/28/21 05:46 Smudge Cells Not Reportable 07/28/21 05:46 Toxic Granulation Not Reportable 07/28/21 05:46 Toxic Vacuolation Not Reportable 07/28/21 05:46 Dohle Bodies Not Reportable 07/28/21 05:46 Pelger-Huet Anomaly Not Reportable 07/28/21 05:46 [place] Rods Not Reportable 07/28/21 05:46 Platelet Estimate Consistent w auto 07/28/21 05:46 Clumped Platelets Not Reportable 07/28/21 05:46 Plt Clumps, EDTA Not Reportable 07/28/21 05:46 Large Platelets Not Reportable 07/28/21 05:46 Giant Platelets Not Reportable 07/28/21 05:46 Platelet Satelliting Not Reportable 07/28/21 05:46 Plt Morphology Comment Not Reportable 07/28/21 05:46 RBC Morphology Normal 07/28/21 05:46 Dimorphic RBCs Not Reportable 07/28/21 05:46 Polychromasia Not Reportable 07/28/21 05:46 Hypochromasia Not Reportable 07/28/21 05:46 Poikilocytosis Not Reportable 07/28/21 05:46 Anisocytosis Not Reportable 07/28/21 05:46 Microcytosis Not Reportable 07/28/21 05:46 Macrocytosis Not Reportable 07/28/21 05:46 Spherocytes Not Reportable 07/28/21 05:46 Pappenheimer Bodies Not Reportable 07/28/21 05:46 Sickle Cells Not Reportable 07/28/21 05:46 Target Cells Not Reportable 07/28/21 05:46 Tear Drop Cells Not Reportable 07/28/21 05:46 Ovalocytes Not Reportable 07/28/21 05:46 Helmet Cells Not Reportable 07/28/21 05:46 [place] Bodies Not Reportable 07/28/21 05:46 [place] Rings Not Reportable 07/28/21 05:46 [place] Cells Not Reportable 07/28/21 05:46 Bite Cells Not Reportable 07/28/21 05:46 Crenated Cell Not Reportable 07/28/21 05:46 Elliptocytes Not Reportable 07/28/21 05:46 Acanthocytes (Spur) Not Reportable 07/28/21 05:46 Rouleaux Not Reportable 07/28/21 05:46 Hemoglobin C Crystals Not Reportable 07/28/21 05:46 Schistocytes Not Reportable 07/28/21 05:46 Malaria parasites Not Reportable 07/28/21 05:46 Curtis Bodies Not Reportable 07/28/21 05:46 Hem Pathologist Commnt No 07/28/21 05:46 Sodium 144 mmol/L (137-145) D 07/28/21 05:46 Potassium 3.8 mmol/L (3.6-5.0) 07/28/21 05:46 Chloride 109.2 mmol/L (98-107) H 07/28/21 05:46 Carbon Dioxide 21 mmol/L (22-30) L 07/28/21 05:46 Anion Gap 18 mmol/L 07/28/21 05:46 BUN 19 mg/dL (7-17) H 07/28/21 05:46 Creatinine 0.8 mg/dL (0.6-1.2) 07/28/21 05:46 Estimated GFR > 60 ml/min 07/28/21 05:46 BUN/Creatinine Ratio 24 % 07/28/21 05:46 Glucose 85 mg/dL (65-100) 07/28/21 05:46 POC Glucose 96 mg/dL (70-105) 07/27/21 22:15 Hemoglobin A1c 5.6 % (4-6) 07/28/21 05:46 Calcium 10.6 mg/dL (8.4-10.2) H 07/28/21 05:46 Total Bilirubin 0.50 mg/dL (0.1-1.2) 07/28/21 05:46 AST 8 units/L (5-40) 07/28/21 05:46 ALT 6 units/L (7-56) L 07/28/21 05:46 Alkaline Phosphatase 68 units/L (35-129) 07/28/21 05:46 Total Protein 6.4 g/dL (6.3-8.2) 07/28/21 05:46 Albumin 3.0 g/dL (3.9-5) L 07/28/21 05:46 Albumin/Globulin Ratio 0.9 % 07/28/21 05:46 Triglycerides 99 mg/dL (2-149) 07/28/21 05:46 Cholesterol 130 mg/dL (50-199) 07/28/21 05:46 LDL Cholesterol Direct 70 mg/dL (50-130) 07/28/21 05:46 HDL Cholesterol 41 mg/dL (40-59) 07/28/21 05:46 Cholesterol/HDL Ratio 3.17 % 07/28/21 05:46 TSH 1.660 mlU/mL (0.270-4.200) 07/28/21 05:46 Last Vital Signs Temp 98.0 F 07/31/21 07:37 Pulse 75 07/31/21 09:21 Resp 18 07/31/21 07:37 BP 110/74 07/31/21 09:21 Pulse Ox 100 07/31/21 07:37
--- NOTE | 2021-07-31 17:15 | Progress Note ---
Assessment and Plan - Patient Problems (1) Vascular dementia with behavioral disturbance Current Visit: Yes Status: Acute Plan to address problem: Verbal prompting, verbal redirection, benzodiazepine therapy as clinically indicated, supportive care. (2) Cerebral atherosclerosis Current Visit: Yes Status: Acute Plan to address problem: Risk factor reduction, supportive care, antiplatelet therapy as clinically indicated (3) Pulmonary embolism Current Visit: Yes Status: Acute Plan to address problem: Continue therapeutic anticoagulation (4) Hypertension Current Visit: Yes Status: Acute Qualifiers: Hypertension type: primary hypertension Qualified Code(s): I10 - Essential (primary) hypertension Plan to address problem: Monitor blood pressure every shift, continue medical management History Interval history: 71 YO Female with Vascular Dementia with Behavioral Disturbance, Cerebral Atherosclerosis, HTN, Pulmonary Embolism on therapeutic anticoagulation with Eliquis, BrCa admitted to [facility] for psychiatric stabilization. No reported nursing events. Patient cooperative. Hospitalist Physical - Constitutional Vitals: Temp Pulse Resp BP Pulse Ox 98.0 F 75 18 110/74 100 07/31/21 07:37 07/31/21 09:21 07/31/21 07:37 07/31/21 09:21 07/31/21 07:37 General appearance: Present: obese - EENT Eyes: Present: PERRL, EOM intact ENT: hearing decreased - Neck Neck: Present: supple - Respiratory Respiratory effort: normal Respiratory: bilateral: CTA - Cardiovascular Rhythm: regular Heart Sounds: Present: S1 & S2 - Extremities Extremities: no ischemia Peripheral Pulses: within normal limits - Abdominal General gastrointestinal: soft, non-tender, non-distended - Integumentary Integumentary: Present: clear, dry - Psychiatric Psychiatric: cooperative - Neurologic Neurologic: CNII-XII intact Results - Labs CBC & Chem 7: 07/28/21 05:46 07/28/21 05:46 Labs: Laboratory Last Values WBC 3.9 K/mm3 (4.5-11.0) L 07/28/21 05:46 RBC 4.02 M/mm3 (3.65-5.03) 07/28/21 05:46 Hgb 11.1 gm/dl (10.1-14.3) 07/28/21 05:46 Hct 34.1 % (30.3-42.9) 07/28/21 05:46 MCV 85 fl (79-97) 07/28/21 05:46 MCH 28 pg (28-32) 07/28/21 05:46 MCHC 33 % (30-34) 07/28/21 05:46 RDW 18.3 % (13.2-15.2) H 07/28/21 05:46 Plt Count 212 K/mm3 (140-440) 07/28/21 05:46 [place] % (Auto) Continuous Improvement Manager 07/28/21 05:46 Add Manual Diff Complete 07/28/21 05:46 Total Counted 100 07/28/21 05:46 Seg Neuts % (Manual) 62.0 % (40.0-70.0) 07/28/21 05:46 Band Neutrophils % 3.0 % 07/28/21 05:46 Lymphocytes % (Manual) 22.0 % (13.4-35.0) 07/28/21 05:46 Monocytes % (Manual) 13.0 % (0.0-7.3) H 07/28/21 05:46 Nucleated RBC % Not Reportable 07/28/21 05:46 Seg Neutrophils # Man 2.4 K/mm3 (1.8-7.7) 07/28/21 05:46 Band Neutrophils # 0.1 K/mm3 07/28/21 05:46 Lymphocytes # (Manual) 0.9 K/mm3 (1.2-5.4) L 07/28/21 05:46 Abs React Lymphs (Man) 0.0 K/mm3 07/28/21 05:46 Monocytes # (Manual) 0.5 K/mm3 (0.0-0.8) 07/28/21 05:46 Eosinophils # (Manual) 0.0 K/mm3 (0.0-0.4) 07/28/21 05:46 Basophils # (Manual) 0.0 K/mm3 (0.0-0.1) 07/28/21 05:46 Metamyelocytes # 0.0 K/mm3 07/28/21 05:46 Myelocytes # 0.0 K/mm3 07/28/21 05:46 Promyelocytes # 0.0 K/mm3 07/28/21 05:46 Blast Cells # 0.0 K/mm3 07/28/21 05:46 WBC Morphology Not Reportable 07/28/21 05:46 Hypersegmented Neuts Not Reportable 07/28/21 05:46 Hyposegmented Neuts Not Reportable 07/28/21 05:46 Hypogranular Neuts Not Reportable 07/28/21 05:46 Smudge Cells Not Reportable 07/28/21 05:46 Toxic Granulation Not Reportable 07/28/21 05:46 Toxic Vacuolation Not Reportable 07/28/21 05:46 Dohle Bodies Not Reportable 07/28/21 05:46 Pelger-Huet Anomaly Not Reportable 07/28/21 05:46 [place] Rods Not Reportable 07/28/21 05:46 Platelet Estimate Consistent w auto 07/28/21 05:46 Clumped Platelets Not Reportable 07/28/21 05:46 Plt Clumps, EDTA Not Reportable 07/28/21 05:46 Large Platelets Not Reportable 07/28/21 05:46 Giant Platelets Not Reportable 07/28/21 05:46 Platelet Satelliting Not Reportable 07/28/21 05:46 Plt Morphology Comment Not Reportable 07/28/21 05:46 RBC Morphology Normal 07/28/21 05:46 Dimorphic RBCs Not Reportable 07/28/21 05:46 Polychromasia Not Reportable 07/28/21 05:46 Hypochromasia Not Reportable 07/28/21 05:46 Poikilocytosis Not Reportable 07/28/21 05:46 Anisocytosis Not Reportable 07/28/21 05:46 Microcytosis Not Reportable 07/28/21 05:46 Macrocytosis Not Reportable 07/28/21 05:46 Spherocytes Not Reportable 07/28/21 05:46 Pappenheimer Bodies Not Reportable 07/28/21 05:46 Sickle Cells Not Reportable 07/28/21 05:46 Target Cells Not Reportable 07/28/21 05:46 Tear Drop Cells Not Reportable 07/28/21 05:46 Ovalocytes Not Reportable 07/28/21 05:46 Helmet Cells Not Reportable 07/28/21 05:46 [place] Bodies Not Reportable 07/28/21 05:46 [place] Rings Not Reportable 07/28/21 05:46 [place] Cells Not Reportable 07/28/21 05:46 Bite Cells Not Reportable 07/28/21 05:46 Crenated Cell Not Reportable 07/28/21 05:46 Elliptocytes Not Reportable 07/28/21 05:46 Acanthocytes (Spur) Not Reportable 07/28/21 05:46 Rouleaux Not Reportable 07/28/21 05:46 Hemoglobin C Crystals Not Reportable 07/28/21 05:46 Schistocytes Not Reportable 07/28/21 05:46 Malaria parasites Not Reportable 07/28/21 05:46 Curtis Bodies Not Reportable 07/28/21 05:46 Hem Pathologist Commnt No 07/28/21 05:46 Sodium 144 mmol/L (137-145) D 07/28/21 05:46 Potassium 3.8 mmol/L (3.6-5.0) 07/28/21 05:46 Chloride 109.2 mmol/L (98-107) H 07/28/21 05:46 Carbon Dioxide 21 mmol/L (22-30) L 07/28/21 05:46 Anion Gap 18 mmol/L 07/28/21 05:46 BUN 19 mg/dL (7-17) H 07/28/21 05:46 Creatinine 0.8 mg/dL (0.6-1.2) 07/28/21 05:46 Estimated GFR > 60 ml/min 07/28/21 05:46 BUN/Creatinine Ratio 24 % 07/28/21 05:46 Glucose 85 mg/dL (65-100) 07/28/21 05:46 POC Glucose 96 mg/dL (70-105) 07/27/21 22:15 Hemoglobin A1c 5.6 % (4-6) 07/28/21 05:46 Calcium 10.6 mg/dL (8.4-10.2) H 07/28/21 05:46 Total Bilirubin 0.50 mg/dL (0.1-1.2) 07/28/21 05:46 AST 8 units/L (5-40) 07/28/21 05:46 ALT 6 units/L (7-56) L 07/28/21 05:46 Alkaline Phosphatase 68 units/L (35-129) 07/28/21 05:46 Total Protein 6.4 g/dL (6.3-8.2) 07/28/21 05:46 Albumin 3.0 g/dL (3.9-5) L 07/28/21 05:46 Albumin/Globulin Ratio 0.9 % 07/28/21 05:46 Triglycerides 99 mg/dL (2-149) 07/28/21 05:46 Cholesterol 130 mg/dL (50-199) 07/28/21 05:46 LDL Cholesterol Direct 70 mg/dL (50-130) 07/28/21 05:46 HDL Cholesterol 41 mg/dL (40-59) 07/28/21 05:46 Cholesterol/HDL Ratio 3.17 % 07/28/21 05:46 TSH 1.660 mlU/mL (0.270-4.200) 07/28/21 05:46 Horn/IV: Voiding Method Toilet Active Medications - Current Medications Current Medications: Generic Name Dose Route Start Last Admin Trade Name Freq PRN Reason Stop Dose Admin Amlodipine Besylate 10 mg 07/28/21 10:00 07/31/21 09:21 Amlodipine 10 Mg Tab PO 10 mg DAILY ROCÍO Administration Diclofenac Sodium 20 applic 07/27/21 21:00 07/31/21 14:36 Diclofenac Sodium 1% Topical Gel 100 Gm TP 20 applic Q6H ROCÍO Administration Mirtazapine 7.5 mg 07/28/21 22:00 07/30/21 21:25 Mirtazapine 15 Mg Tab PO 7.5 mg QHS ROCÍO Administration Risperidone 0.25 mg 07/28/21 11:00 07/31/21 09:21 Risperidone 0.25 Mg Tab PO 0.25 mg BID ROCÍO Administration Rivaroxaban 20 mg 07/28/21 10:00 07/31/21 09:21 Rivaroxaban 20 Mg Tab PO 20 mg QDAY ROCÍO Administration Valproic Acid 250 mg 07/27/21 22:00 07/31/21 09:21 Valproic Acid 250 Mg Cap PO 250 mg BID ROCÍO Administration
[2021-07-31] MEDS: MIRTAZAPINE 15 MG TAB PO SCH (21:48)
[2021-08-01] MEDS: DICLOFENAC SODIUM 1% TOPICAL GEL 100 GM TP SCH ×4 (05:12→21:01)
--- NOTE | 2021-08-01 07:43 | Progress Note ---
Subjective Date of service: 08/01/21 Subjective Comment: 07/29/2021: The patient was seen in the activity room awaiting breakfast. The patient reports doing great. She denies being depressed. She reports sleep and appetite as good. The patient denies any current suicidal/homicidal ideation and denies hallucinations. Per nurse, the patient had a quiet night. No changes made today. 07/30/2021: The patient was seen in the activity room, she presents in high spirits. The patient reports mood as "good", states sleep and appetite as good. She denies any current suicidal/homicidal ideation and denies hallucinations. Per nurse, the patient had a quiet night. No changes made today. 07/31/2021: The patient was seen in the activity room socializing with peer, she reports mood as " fabulous." " I am as happy as can be." She reports sleep and appetite as good. She denies any current suicidal/homicidal ideation and denies hallucinations. Per nurse, the patient had a quiet night. No changes made today. 08/01/2021: The patient seen socializing with peer, she reports mood as "great." The patient reports appetite and sleep as good " I slept like a baby." She denies any current suicidal/homicidal ideation and denies hallucinations. Per nurse, the patient had a quiet night. No changes made today. REVIEW OF SYSTEMS Constitutional: Negative for weight loss ENT: Negative for stridor Respiratory: Negative for cough or hemoptysis All other systems reviewed and are negative MENTAL STATUS EXAMINATION General Appearance and Behavior: Age appropriate, good hygiene, wearing appropriate clothes, good eye contact, cooperative polite with questioning. Cooperation: Participating, guarded Psychomotor Behavior: normal Mood: "great" Affect and affective range: congruent with mood Thought Process: Goal directed Thought Content: No suicidal Speech: Normal volume, Regular rate and rhythm, loud at times Suicidal Ideation: Denies Homicidal Ideation: Denies Hallucinations: Denies Delusions: None Impulse Control: impaired Insight and Judgment: Limited insight and judgment Memory: fair Attention: Divided Orientation: Alert and oriented. Assessment and Plan (1) Mood Disorder, Unspecified Current Visit: Yes Status: Acute RECOMMENDATIONS Treatment Plan Patient admitted for inpatient psychiatric evaluation, medication adjustment and close monitoring The patient's behavior, mood, sleep and appetite will be closely monitored. Patient enrolled in individual and group therapeutic sessions and encouraged to attend. Patient provided with a safe and structured environment. Patient's physical health needs will be addressed by the Hospitalist. Hospitalist Consulted Labs including CBC, CMP, Lipid profile and Hemoglobin A1C levels ordered for baseline reference Social Assessment will be completed and the Chief Of Field Operations will work with patient and family to ensure a suitable and safe disposition Medication adjustment will be made as clinically indicated No changes made today Continue Risperidone 0.25mg po BID Continue Remeron 7.5mg po qhs Usual Wellness Faith/Preservation: - Start Trazodone 50 mg po QHS & 50 mg po QHS PRN between 10 PM & 2 AM for insomnia - Start Melatonin 5 mg po QHS to promote circadian rhythm The patient agreed on the treatment plan, understood the risk, benefit, alternative treatment, potential consequence of no treatment, and gave informed consent. Estimated days: 3 Post hospital care: primary care provider, psychiatric provider Case staffed with Dr. Barnett Legal Status: Voluntary Reaction to Hospitalization: Accepting Medications and Allergies Medications and Allergies Allergies Allergy/AdvReac Type Severity Reaction Status Date / Time No Known Allergies Allergy Verified 07/27/21 04:01 Home Medications Medication Instructions Recorded Confirmed Last Taken Type Diclofenac 1% [Diclofenac 1% 100 gm TP Q6H 07/27/21 07/28/21 Unknown History topical gel] Rivaroxaban [Xarelto] 20 mg PO DAILY 07/27/21 07/28/21 Unknown History Valproic Acid [Depakene] 250 mg PO BID 07/27/21 07/28/21 Unknown History amLODIPine [Norvasc] 10 mg PO DAILY 07/27/21 07/28/21 Unknown History cephALEXin [Keflex] 500 mg PO Q8HR #20 cap 07/27/21 07/28/21 Unknown Rx Active Meds: Active Medications Amlodipine Besylate (Amlodipine 10 Mg Tab) 10 mg PO DAILY [facility] Last Admin: 07/31/21 09:21 Dose: 10 mg Documented by: Diclofenac Sodium (Diclofenac Sodium 1% Topical Gel 100 Gm) 20 applic TP Q6H [facility] Last Admin: 08/01/21 05:12 Dose: Not Given Documented by: Mirtazapine (Mirtazapine 15 Mg Tab) 7.5 mg PO QHS [facility] Last Admin: 07/31/21 21:48 Dose: 7.5 mg Documented by: Risperidone (Risperidone 0.25 Mg Tab) 0.25 mg PO BID [facility] Last Admin: 07/31/21 21:53 Dose: 0.25 mg Documented by: Rivaroxaban (Rivaroxaban 20 Mg Tab) 20 mg PO QDAY [facility] Last Admin: 07/31/21 09:21 Dose: 20 mg Documented by: Valproic Acid (Valproic Acid 250 Mg Cap) 250 mg PO BID [facility] Last Admin: 07/31/21 21:47 Dose: 250 mg Documented by: Results - Results Labs/Vitals: Laboratory Last Values WBC 3.9 K/mm3 (4.5-11.0) L 07/28/21 05:46 RBC 4.02 M/mm3 (3.65-5.03) 07/28/21 05:46 Hgb 11.1 gm/dl (10.1-14.3) 07/28/21 05:46 Hct 34.1 % (30.3-42.9) 07/28/21 05:46 MCV 85 fl (79-97) 07/28/21 05:46 MCH 28 pg (28-32) 07/28/21 05:46 MCHC 33 % (30-34) 07/28/21 05:46 RDW 18.3 % (13.2-15.2) H 07/28/21 05:46 Plt Count 212 K/mm3 (140-440) 07/28/21 05:46 [place] % (Auto) Steel Erector Apprentice 07/28/21 05:46 Add Manual Diff Complete 07/28/21 05:46 Total Counted 100 07/28/21 05:46 Seg Neuts % (Manual) 62.0 % (40.0-70.0) 07/28/21 05:46 Band Neutrophils % 3.0 % 07/28/21 05:46 Lymphocytes % (Manual) 22.0 % (13.4-35.0) 07/28/21 05:46 Monocytes % (Manual) 13.0 % (0.0-7.3) H 07/28/21 05:46 Nucleated RBC % Not Reportable 07/28/21 05:46 Seg Neutrophils # Man 2.4 K/mm3 (1.8-7.7) 07/28/21 05:46 Band Neutrophils # 0.1 K/mm3 07/28/21 05:46 Lymphocytes # (Manual) 0.9 K/mm3 (1.2-5.4) L 07/28/21 05:46 Abs React Lymphs (Man) 0.0 K/mm3 07/28/21 05:46 Monocytes # (Manual) 0.5 K/mm3 (0.0-0.8) 07/28/21 05:46 Eosinophils # (Manual) 0.0 K/mm3 (0.0-0.4) 07/28/21 05:46 Basophils # (Manual) 0.0 K/mm3 (0.0-0.1) 07/28/21 05:46 Metamyelocytes # 0.0 K/mm3 07/28/21 05:46 Myelocytes # 0.0 K/mm3 07/28/21 05:46 Promyelocytes # 0.0 K/mm3 07/28/21 05:46 Blast Cells # 0.0 K/mm3 07/28/21 05:46 WBC Morphology Not Reportable 07/28/21 05:46 Hypersegmented Neuts Not Reportable 07/28/21 05:46 Hyposegmented Neuts Not Reportable 07/28/21 05:46 Hypogranular Neuts Not Reportable 07/28/21 05:46 Smudge Cells Not Reportable 07/28/21 05:46 Toxic Granulation Not Reportable 07/28/21 05:46 Toxic Vacuolation Not Reportable 07/28/21 05:46 Dohle Bodies Not Reportable 07/28/21 05:46 Pel[place]-Huet Anomaly Not Reportable 07/28/21 05:46 [place] Rods Not Reportable 07/28/21 05:46 Platelet Estimate Consistent w auto 07/28/21 05:46 Clumped Platelets Not Reportable 07/28/21 05:46 Plt Clumps, EDTA Not Reportable 07/28/21 05:46 Large Platelets Not Reportable 07/28/21 05:46 Giant Platelets Not Reportable 07/28/21 05:46 Platelet Satelliting Not Reportable 07/28/21 05:46 Plt Morphology Comment Not Reportable 07/28/21 05:46 RBC Morphology Normal 07/28/21 05:46 Dimorphic RBCs Not Reportable 07/28/21 05:46 Polychromasia Not Reportable 07/28/21 05:46 Hypochromasia Not Reportable 07/28/21 05:46 Poikilocytosis Not Reportable 07/28/21 05:46 Anisocytosis Not Reportable 07/28/21 05:46 Microcytosis Not Reportable 07/28/21 05:46 Macrocytosis Not Reportable 07/28/21 05:46 Spherocytes Not Reportable 07/28/21 05:46 Pappenheimer Bodies Not Reportable 07/28/21 05:46 Sickle Cells Not Reportable 07/28/21 05:46 Target Cells Not Reportable 07/28/21 05:46 Tear Drop Cells Not Reportable 07/28/21 05:46 Ovalocytes Not Reportable 07/28/21 05:46 Helmet Cells Not Reportable 07/28/21 05:46 [place] Bodies Not Reportable 07/28/21 05:46 [place] Rings Not Reportable 07/28/21 05:46 [place] Cells Not Reportable 07/28/21 05:46 Bite Cells Not Reportable 07/28/21 05:46 Crenated Cell Not Reportable 07/28/21 05:46 Elliptocytes Not Reportable 07/28/21 05:46 Acanthocytes (Spur) Not Reportable 07/28/21 05:46 Rouleaux Not Reportable 07/28/21 05:46 Hemoglobin C Crystals Not Reportable 07/28/21 05:46 Schistocytes Not Reportable 07/28/21 05:46 Malaria parasites Not Reportable 07/28/21 05:46 [place] Bodies Not Reportable 07/28/21 05:46 Hem Pathologist Commnt No 07/28/21 05:46 Sodium 144 mmol/L (137-145) D 07/28/21 05:46 Potassium 3.8 mmol/L (3.6-5.0) 07/28/21 05:46 Chloride 109.2 mmol/L (98-107) H 07/28/21 05:46 Carbon Dioxide 21 mmol/L (22-30) L 07/28/21 05:46 Anion Gap 18 mmol/L 07/28/21 05:46 BUN 19 mg/dL (7-17) H 07/28/21 05:46 Creatinine 0.8 mg/dL (0.6-1.2) 07/28/21 05:46 Estimated GFR > 60 ml/min 07/28/21 05:46 BUN/Creatinine Ratio 24 % 07/28/21 05:46 Glucose 85 mg/dL (65-100) 07/28/21 05:46 POC Glucose 96 mg/dL (70-105) 07/27/21 22:15 Hemoglobin A1c 5.6 % (4-6) 07/28/21 05:46 Calcium 10.6 mg/dL (8.4-10.2) H 07/28/21 05:46 Total Bilirubin 0.50 mg/dL (0.1-1.2) 07/28/21 05:46 AST 8 units/L (5-40) 07/28/21 05:46 ALT 6 units/L (7-56) L 07/28/21 05:46 Alkaline Phosphatase 68 units/L (35-129) 07/28/21 05:46 Total Protein 6.4 g/dL (6.3-8.2) 07/28/21 05:46 Albumin 3.0 g/dL (3.9-5) L 07/28/21 05:46 Albumin/Globulin Ratio 0.9 % 07/28/21 05:46 Triglycerides 99 mg/dL (2-149) 07/28/21 05:46 Cholesterol 130 mg/dL (50-199) 07/28/21 05:46 LDL Cholesterol Direct 70 mg/dL (50-130) 07/28/21 05:46 HDL Cholesterol 41 mg/dL (40-59) 07/28/21 05:46 Cholesterol/HDL Ratio 3.17 % 07/28/21 05:46 TSH 1.660 mlU/mL (0.270-4.200) 07/28/21 05:46 Last Vital Signs Temp 98.4 F 07/31/21 19:36 Pulse 79 07/31/21 19:36 Resp 16 07/31/21 19:36 BP 120/65 07/31/21 19:36 Pulse Ox 97 07/31/21 19:36
[2021-08-01] MEDS: risperiDONE 0.25 MG TAB PO SCH ×2 (10:37→21:02)
[2021-08-01] MEDS: VALPROIC ACID 250 MG CAP PO SCH ×2 (10:37→21:02)
[2021-08-01] MEDS: RIVAROXABAN 20 MG TAB PO SCH (10:40)
[2021-08-01] MEDS: amLODIPine 10 MG TAB PO SCH (16:10)
[2021-08-01] MEDS: MIRTAZAPINE 15 MG TAB PO SCH (21:02)
[2021-08-02] MEDS: DICLOFENAC SODIUM 1% TOPICAL GEL 100 GM TP SCH ×2 (02:57→09:43)
--- NOTE | 2021-08-02 09:40 | Discharge Summary ---
Providers - Providers Date of Admission: 07/27/21 18:32 Date of discharge: 08/02/21 Attending physician: YOLANDA TAVAREZ MD 07/27/21 17:45 Consult to Physician [CONS] Routine Comment: Consulting Provider: PRADEEP GASTELUM Physician Instructions: Reason For Exam: manage medical care Primary care physician: ADELA MCCAIN MD Hospitalization Hospital course: The patient was provided inpatient psychiatric treatment with safe and supportive environment, group/individual therapy, psychiatric medication, medication adjustment, adverse effect monitor, medical evaluation, medical treatment, social service assessment, social support meeting, placement assessment and psycho-education. The patients mood, cognition, behavior, motivation, compliance to treatment and appreciation on family/social support are improved and stabilized. At the time of discharge, the patient had no suicidal ideas, no homicidal ideas, no aggressive thoughts, no endangering behavior and no debilitating adverse effects. The patient agreed on the treatment plan, understood the risk, benefit, alternative treatment, potential consequence of no treatment, and gave informed consent. Progress Note: 07/29/2021: The patient was seen in the activity room awaiting breakfast. The patient reports doing great. She denies being depressed. She reports sleep and appetite as good. The patient denies any current suicidal/homicidal ideation and denies hallucinations. Per nurse, the patient had a quiet night. No changes made today. 07/30/2021: The patient was seen in the activity room, she presents in high spirits. The patient reports mood as "good", states sleep and appetite as good. She denies any current suicidal/homicidal ideation and denies hallucinations. Per nurse, the patient had a quiet night. No changes made today. 07/31/2021: The patient was seen in the activity room socializing with peer, she reports mood as " fabulous." " I am as happy as can be." She reports sleep and appetite as good. She denies any current suicidal/homicidal ideation and denies hallucinations. Per nurse, the patient had a quiet night. No changes made today. 08/01/2021: The patient seen socializing with peer, she reports mood as "great." The patient reports appetite and sleep as good " I slept like a baby." She denies any current suicidal/homicidal ideation and denies hallucinations. Per nurse, the patient had a quiet night. No changes made today. Disposition: HOME / SELF CARE / HOMELESS Allergies/Adverse Reactions: Allergies No Known Allergies Allergy (Verified 07/27/21 04:01) Vital Signs: Last Vital Signs Temp 98.7 F 08/01/21 22:00 Pulse 81 08/01/21 22:00 Resp 18 08/01/21 22:00 BP 124/78 08/01/21 22:00 Pulse Ox 97 08/01/21 22:00 Last Lab: Laboratory Last Values WBC 3.9 K/mm3 (4.5-11.0) L 07/28/21 05:46 RBC 4.02 M/mm3 (3.65-5.03) 07/28/21 05:46 Hgb 11.1 gm/dl (10.1-14.3) 07/28/21 05:46 Hct 34.1 % (30.3-42.9) 07/28/21 05:46 MCV 85 fl (79-97) 07/28/21 05:46 MCH 28 pg (28-32) 07/28/21 05:46 MCHC 33 % (30-34) 07/28/21 05:46 RDW 18.3 % (13.2-15.2) H 07/28/21 05:46 Plt Count 212 K/mm3 (140-440) 07/28/21 05:46 [place] % (Auto) [employer] 07/28/21 05:46 Add Manual Diff Complete 07/28/21 05:46 Total Counted 100 07/28/21 05:46 Seg Neuts % (Manual) 62.0 % (40.0-70.0) 07/28/21 05:46 Band Neutrophils % 3.0 % 07/28/21 05:46 Lymphocytes % (Manual) 22.0 % (13.4-35.0) 07/28/21 05:46 Monocytes % (Manual) 13.0 % (0.0-7.3) H 07/28/21 05:46 Nucleated RBC % Not Reportable 07/28/21 05:46 Seg Neutrophils # Man 2.4 K/mm3 (1.8-7.7) 07/28/21 05:46 Band Neutrophils # 0.1 K/mm3 07/28/21 05:46 Lymphocytes # (Manual) 0.9 K/mm3 (1.2-5.4) L 07/28/21 05:46 Abs React Lymphs (Man) 0.0 K/mm3 07/28/21 05:46 Monocytes # (Manual) 0.5 K/mm3 (0.0-0.8) 07/28/21 05:46 Eosinophils # (Manual) 0.0 K/mm3 (0.0-0.4) 07/28/21 05:46 Basophils # (Manual) 0.0 K/mm3 (0.0-0.1) 07/28/21 05:46 Metamyelocytes # 0.0 K/mm3 07/28/21 05:46 Myelocytes # 0.0 K/mm3 07/28/21 05:46 Promyelocytes # 0.0 K/mm3 07/28/21 05:46 Blast Cells # 0.0 K/mm3 07/28/21 05:46 WBC Morphology Not Reportable 07/28/21 05:46 Hypersegmented Neuts Not Reportable 07/28/21 05:46 Hyposegmented Neuts Not Reportable 07/28/21 05:46 Hypogranular Neuts Not Reportable 07/28/21 05:46 Smudge Cells Not Reportable 07/28/21 05:46 Toxic Granulation Not Reportable 07/28/21 05:46 Toxic Vacuolation Not Reportable 07/28/21 05:46 Dohle Bodies Not Reportable 07/28/21 05:46 Pelger-Huet Anomaly Not Reportable 07/28/21 05:46 Taylor Rods Not Reportable 07/28/21 05:46 Platelet Estimate Consistent w auto 07/28/21 05:46 Clumped Platelets Not Reportable 07/28/21 05:46 Plt Clumps, EDTA Not Reportable 07/28/21 05:46 Large Platelets Not Reportable 07/28/21 05:46 Giant Platelets Not Reportable 07/28/21 05:46 Platelet Satelliting Not Reportable 07/28/21 05:46 Plt Morphology Comment Not Reportable 07/28/21 05:46 RBC Morphology Normal 07/28/21 05:46 Dimorphic RBCs Not Reportable 07/28/21 05:46 Polychromasia Not Reportable 07/28/21 05:46 Hypochromasia Not Reportable 07/28/21 05:46 Poikilocytosis Not Reportable 07/28/21 05:46 Anisocytosis Not Reportable 07/28/21 05:46 Microcytosis Not Reportable 07/28/21 05:46 Macrocytosis Not Reportable 07/28/21 05:46 Spherocytes Not Reportable 07/28/21 05:46 Pappenheimer Bodies Not Reportable 07/28/21 05:46 Sickle Cells Not Reportable 07/28/21 05:46 Target Cells Not Reportable 07/28/21 05:46 Tear Drop Cells Not Reportable 07/28/21 05:46 Ovalocytes Not Reportable 07/28/21 05:46 Helmet Cells Not Reportable 07/28/21 05:46 [place] Bodies Not Reportable 07/28/21 05:46 [place] Rings Not Reportable 07/28/21 05:46 [place] Cells Not Reportable 07/28/21 05:46 Bite Cells Not Reportable 07/28/21 05:46 Crenated Cell Not Reportable 07/28/21 05:46 Elliptocytes Not Reportable 07/28/21 05:46 Acanthocytes (Spur) Not Reportable 07/28/21 05:46 Rouleaux Not Reportable 07/28/21 05:46 Hemoglobin C Crystals Not Reportable 07/28/21 05:46 Schistocytes Not Reportable 07/28/21 05:46 Malaria parasites Not Reportable 07/28/21 05:46 Curtis Bodies Not Reportable 07/28/21 05:46 Hem Pathologist Commnt No 07/28/21 05:46 Sodium 144 mmol/L (137-145) D 07/28/21 05:46 Potassium 3.8 mmol/L (3.6-5.0) 07/28/21 05:46 Chloride 109.2 mmol/L (98-107) H 07/28/21 05:46 Carbon Dioxide 21 mmol/L (22-30) L 07/28/21 05:46 Anion Gap 18 mmol/L 07/28/21 05:46 BUN 19 mg/dL (7-17) H 07/28/21 05:46 Creatinine 0.8 mg/dL (0.6-1.2) 07/28/21 05:46 Estimated GFR > 60 ml/min 07/28/21 05:46 BUN/Creatinine Ratio 24 % 07/28/21 05:46 Glucose 85 mg/dL (65-100) 07/28/21 05:46 POC Glucose 96 mg/dL (70-105) 07/27/21 22:15 Hemoglobin A1c 5.6 % (4-6) 07/28/21 05:46 Calcium 10.6 mg/dL (8.4-10.2) H 07/28/21 05:46 Total Bilirubin 0.50 mg/dL (0.1-1.2) 07/28/21 05:46 AST 8 units/L (5-40) 07/28/21 05:46 ALT 6 units/L (7-56) L 07/28/21 05:46 Alkaline Phosphatase 68 units/L (35-129) 07/28/21 05:46 Total Protein 6.4 g/dL (6.3-8.2) 07/28/21 05:46 Albumin 3.0 g/dL (3.9-5) L 07/28/21 05:46 Albumin/Globulin Ratio 0.9 % 07/28/21 05:46 Triglycerides 99 mg/dL (2-149) 07/28/21 05:46 Cholesterol 130 mg/dL (50-199) 07/28/21 05:46 LDL Cholesterol Direct 70 mg/dL (50-130) 07/28/21 05:46 HDL Cholesterol 41 mg/dL (40-59) 07/28/21 05:46 Cholesterol/HDL Ratio 3.17 % 07/28/21 05:46 TSH 1.660 mlU/mL (0.270-4.200) 07/28/21 05:46 Core Measure Documentation - Palliative Care Palliative Care/ Comfort Measures: Not Applicable - Core Measures Any of the following diagnoses?: none - VTE Discharge Requirements Deep Vein Thrombosis/Pulmonary Embolism Present on Admission: No Exam - Constitutional Vitals: Temp Pulse Resp BP Pulse Ox 98.7 F 81 18 124/78 97 08/01/21 22:00 08/01/21 22:00 08/01/21 22:00 08/01/21 22:00 08/01/21 22:00 Plan Activity: advance as tolerated Weight Bearing Status: Weight Bear as Tolerated Diet: regular Care Plan Goals: Maintain good and stable mental health. Plan of Treatment: The patient should be compliant with medications, not to use drugs and not to drink alcohol. The patient understands that if suicidal ideas, homicidal ideas, or any endangering thoughts arise, the patient should immediately seek for emergent assistance including but not limited to crisis hot line and emergency room. Follow up with outpatient Psychiatrist and PCP within 7 - 14 days of discharge. Follow up with: ADELA MCCAIN MD [Primary Care Provider] - 7 Days Prescriptions: Mirtazapine [Remeron 15mg TAB] 7.5 mg PO QHS 30 Days #30 tablet Valproic Acid [Depakene] 250 mg PO BID 30 Days #60 capsule risperiDONE [RisperDAL] 0.25 mg PO BID 30 Days #60 tablet
[2021-08-02 09:42] VITALS: BP 126/72
[2021-08-02] MEDS: amLODIPine 10 MG TAB PO SCH (09:42)
[2021-08-02] MEDS: VALPROIC ACID 250 MG CAP PO SCH (09:42)
[2021-08-02] MEDS: risperiDONE 0.25 MG TAB PO SCH (09:42)
[2021-08-02] MEDS: RIVAROXABAN 20 MG TAB PO SCH (09:44)
== END 2021-08-02 13:45 | disposition home or self-care (01) | DRG 885 ==
LOC: UNDOADMIN 16:42 → 3A 16:42 → 5A 18:32
PROVIDERS: ADMIT Psychiatry & Neurology Psychiatry; ATTEND Psychiatry & Neurology Psychiatry
DX: F39 Unspecified mood [affective] disorder (principal); F01.51 Vascular dementia, unspecified severity, with behavioral disturbance; I10 Essential (primary) hypertension; Z86.711 Personal history of pulmonary embolism; I67.2 Cerebral atherosclerosis; Z79.01 Long term (current) use of anticoagulants
CPT/HCPCS: 36415; 80048; 80053; 80061; 80307; 80320; 81001; 82962; 83036; 84443; 85007; 85025; 99284; G0378; G0480; U0003